=== PATIENT | female | born 1930 | race Caucasian/White ===

== ENCOUNTER → 2016-08-30 | Outpatient (CLI) | payer OTHER ==
[~2016-08-30] MED LIST: AMLO-110 PO; ASPEC325 PO
[2016-08-30 17:36] LABS: BASO % 0.9 %; EOS % 2.6 %; IG% 0.6 %; LYMPH ABS # 1.27 K/uL (1.2-3.4); MEAN CELL VOLUME 69.9 fL (80-100); MEAN CORPUSCULAR HEMOGLOBIN 21.8 pg (25-34); MEAN CORPUSCULAR HGB CONC 31.2 g/dl (32-36); MEAN PLATELET VOLUME 10.2 fL (7.4-10.4); MONO % 6.7 %; NEUT % 78.2 %; PLATELET COUNT 427 K/uL (130-400); RED BLOOD COUNT 4.72 M/uL (4.2-5.4); WHITE BLOOD COUNT 11.52 K/uL (4.8-10.8)
[2016-08-30 17:52] LABS: ALT/SGPT 25 U/L (12-78); BLOOD UREA NITROGEN 24 mg/dl (7-18); BUN/CREATININE RATIO 19.6 (10-20); CARBON DIOXIDE 24 mmol/L (21-32); CHLORIDE 105 mmol/L (98-107); GLUCOSE 173 mg/dl (70-99); POTASSIUM 4.2 mmol/L (3.5-5.1); SODIUM 137 mmol/L (136-145)
[2016-08-30 18:03] LABS: ALB/GLOB RATIO 0.8 (0.9-2); ALKALINE PHOSPHATASE 790 U/L (45-117); AST/SGOT 63 U/L (15-37)
[2016-08-30 18:06] LABS: CALCIUM 9.5 mg/dl (8.5-10.1)
[2016-08-30 18:09] LABS: COMPLETE YES; MICROCYTOSIS PRESENT
== END | disposition home or self-care (01) ==
LOC: C.LABBFT 16:15
PROVIDERS: ATTEND Nurse Practitioner
DX: R53.1 Weakness (principal)

== ENCOUNTER → 2016-08-31 | Outpatient (CLI) | payer OTHER ==
[2016-08-31 12:43] LABS: URINE APPEARANCE CLOUDY (CLEAR); URINE BILIRUBIN NEG (NEG); URINE COLOR YELLOW; URINE NITRITE NEG (NEG); URINE SPECIFIC GRAVITY 1.018 (1.000-1.030); UROBILINOGEN NEG (NEG); ZZUR CULT IF INDIC CLEAN CATCH NO
[2016-08-31 12:57] LABS: MANUAL MICROSCOPIC REQUIRED? NO; REVIEW REQ? NO
== END | disposition home or self-care (01) ==
LOC: C.LABSPEC 12:20
PROVIDERS: ATTEND Nurse Practitioner
DX: R53.1 Weakness (principal)

== ENCOUNTER → 2016-08-31 | Outpatient (CLI) | payer OTHER ==
--- NOTE | 2016-08-31 08:52 | DIAGNOSTIC IMAGING REPORT ---
CHEST 2 VIEWS ROUTINE CLINICAL HISTORY: R63.4 Weight loss COMPARISON STUDY: No previous studies for comparison. FINDINGS: The heart is normal in size. There is no failure. There is no focal pulmonary consolidation. There is a retrocardiac opacity consistent with a hiatal hernia. There is a trace right pleural effusion. There is interstitial thickening, a finding of uncertain chronicity.[ There is a possible right retrohilar mass. CT scanning is recommended in follow-up. IMPRESSION: 1. Mild interstitial thickening, a finding of uncertain benito 2. Trace right pleural effusion 3. No evidence of focal pulmonary consolidation 4. Possible right retrohilar mass. CT scanning is recommended in follow-up. Electronically signed by: Chandu Wolf M.D. 08/31/2016 8:50 AM Dictated Date/Time: 08/31/2016 8:47 AM
== END | disposition home or self-care (01) ==
LOC: C.RAD 08:33
PROVIDERS: ATTEND Nurse Practitioner
DX: R63.4 Abnormal weight loss (principal); J90 Pleural effusion, not elsewhere classified

== ENCOUNTER 2016-09-03 08:57 | Inpatient (IN) | payer OTHER ==
[~2016-09-03] VITALS: Ht 162.6 cm; Wt 47.6 kg
[~2016-09-03 08:57] MED LIST changes: -AMLO-110 PO
[2016-09-03] MEDS ORDERED: SODIUM CHLORIDE 0.9% 1000ML 1,000 ML IV STA (09:39)
[2016-09-03 09:47] LABS: BASO % 0.2 %; BASO ABS # 0.04 K/uL (0-0.2); EOS % 0.1 %; IG% 0.4 %; LYMPH % 5.3 %; LYMPH ABS # 0.92 K/uL (1.2-3.4); MEAN CELL VOLUME 70.5 fL (80-100); MEAN CORPUSCULAR HEMOGLOBIN 21.7 pg (25-34); MEAN CORPUSCULAR HGB CONC 30.8 g/dl (32-36); MEAN PLATELET VOLUME 10.2 fL (7.4-10.4); MONO % 3.1 %; NEUT % 90.9 %; PLATELET COUNT 391 K/uL (130-400); RED BLOOD COUNT 5.25 M/uL (4.2-5.4); WHITE BLOOD COUNT 17.48 K/uL (4.8-10.8)
[2016-09-03 09:56] LABS: ALT/SGPT 25 U/L (12-78); AST/SGOT 60 U/L (15-37); BLOOD UREA NITROGEN 32 mg/dl (7-18); CALCIUM 8.8 mg/dl (8.5-10.1); CARBON DIOXIDE 27 mmol/L (21-32); CHLORIDE 105 mmol/L (98-107); GLUCOSE 161 mg/dl (70-99); POTASSIUM 4.4 mmol/L (3.5-5.1); SODIUM 141 mmol/L (136-145)
[2016-09-03] MEDS ORDERED: OPTIRAY 320 IV PRN (10:00)
[2016-09-03] MEDS ORDERED: ALBUT/IPRATROP 3MG/0.5MG NEB 3 ML VIAL INH ONE (10:00)
--- NOTE | 2016-09-03 10:03 | EMERGENCY ROOM VISIT NOTE ---
History Report prepared by Jazzy: Jann Moelelr Under the Supervision of: Dr. Toby Chavez M.D. First contact with patient: 09:30 Chief Complaint: WEAKNESS Stated Complaint: WEAKNESS Nursing Triage Summary: pt reports she had oral surgery on jun [address] espinoza and dr levy. had 2 implants was told they bruised a nerve and sx could take up to 6 months to resolve. pt reports left lower jaw is numb and has cough when she swallows since surgery. pt reports she only eats cereal. mouth is dry lips stick to teeth and pt has difficulty speaking d/t dry mouth. pt reports she took miralax last night able to move bowels and urinates without difficulty. pt reports feeling weak and not able to eat much and drinking fluids make her cough. History of Present Illness The patient is a 86 year old female who presents to the Emergency Room with complaints of persistent loss of appetite starting about 2 weeks ago. She recently had some dental implants placed. Since then she has been unable to eat as normal. The patient reports some difficulty swallowing. She has numbness and pain in lower jaw. She also complains of severe generalized weakness. The patient denies headache, fevers, chills, chest pain, shortness of breath, abdominal pain, or any other complaints. She denies any breathing treatments at home. She is a former cigarette smoker of 15 years. Source of History: patient Onset: about 2 weeks ago Position: other (global) Quality: other (loss of appetite) Timing: other (persistent) Associated Symptoms: + numbness (in jaw), + weakness, No SOB, No abdominal pain, No chest pain, No fevers, No headache Review of Systems See HPI for pertinent positives & negatives. A total of 10 systems reviewed and were otherwise negative. Past Medical & Surgical Medical Problems: (1) Fatigue, tachycardia, weight loss (2) Hypertension (3) Tachycardia Family History Hypertension Social History Smoking Status: Former Smoker Alcohol Use: none Marital Status: Housing Status: lives with family Occupation Status: retired Current/Historical Medications Scheduled Amlodipine (Norvasc), 5 MG PO DAILY Allergies Coded Allergies: No Known Allergies (Unverified , 03/16/07) Physical Exam Vital Signs Date Time Temp Pulse Resp B/P Pulse Ox O2 Delivery O2 Flow Rate FiO2 09/03/16 12:40 109 19 119/76 94 Room Air 09/03/16 11:32 126 21 144/76 95 Room Air 09/03/16 10:42 103 18 99 Room Air 09/03/16 10:41 117 20 181/106 97 Room Air 09/03/16 10:36 102 181/98 99 107 194/109 111 181/106 09/03/16 10:17 100 09/03/16 09:02 105 18 105/63 94 Room Air Physical Exam GENERAL: Patient is a healthy-appearing well-nourished HEAD: Normocephalic atraumatic EYES: Ocular movements intact pupils equal and react to light OROPHARYNX mucous membranes are moist no exudates present no erythema or edema present NECK: Supple no nuchal rigidity CHEST: Good equal expansion LUNGS: Bilateral wheezing CARDIAC: Normal S1 and S2 ABDOMEN: Soft nontender no guarding BACK: No CVA tenderness EXTREMITIES: No pain upon palpation normal muscle strength in all groups no clubbing cyanosis or edema NEURO: Patient is following commands is answering questions appropriately. Alert and oriented x3 Cranial Nerves 2-12 grossly intact Medical Decision & Procedures ER Provider Diagnostic Interpretation: CT results as stated below per my review and radiologist interpretation: CT ANGIOGRAPHY OF THE CHEST, PULMONARY EMBOLUS PROTOCOL CLINICAL HISTORY: Shortness of breath and cough. COMPARISON STUDY: Chest radiograph August 31, 2016. TECHNIQUE: Following IV administration of 74 mL of Optiray-320, helical axial images of the chest were obtained utilizing the pulmonary embolus protocol. Maximal intensity projections and sagittal and coronal reformats were viewed on an independent 3D workstation. IV contrast was administered without complication. CT DOSE: 793.42 mGy.cm FINDINGS: No pulmonary emboli are identified although this exam is moderately compromised by respiratory motion artifact. The heart is mildly enlarged. There is no evidence of thoracic aortic dissection. There is a moderate sized hiatal hernia. There is possible thickening of the proximal stomach which is suboptimally assessed by CT. A small right pleural effusion is present. There is no pneumothorax. Moderate emphysema is noted. There is an irregular right lower lobe perihilar mass that measures 7 x 3.9 x 3.2 cm. This likely extends into the mediastinum. There are multiple pathologic right hilar lymph nodes. There are enlarged prevascular and precarinal lymph nodes. Innumerable nodules are noted throughout the lungs. There is interlobular septal thickening within the right lung. The lungs are suboptimally assessed due to respiratory motion. Innumerable sclerotic lesions are noted within visualized skeletal structures with mild loss of height of the T5 and T7 vertebral bodies. Visualized portions of the upper abdomen demonstrate suspected hepatic lesions with a right hepatic lobe lesion measuring 3.4 cm. IMPRESSION: 1. No pulmonary emboli identified although exam moderately compromised by respiratory motion. 2.Irregular right lower lobe perihilar mass with extension into the mediastinum, measuring approximately 7 x 3.9 x 3.2 cm. 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 3. Evidence of widespread metastatic disease, including skeletal, hepatic, pulmonary and mercedes metastases. Suspected mild pathologic fractures of T5 and T7. 4. Small right pleural effusion. 5. Moderate emphysema. 6. Moderate sized hiatal hernia. Possible thickening versus underdistention of the herniated portion of the stomach. An underlying mass is considered unlikely but would be difficult to exclude on this exam. Electronically signed by: Jose Chaudhry M.D. 09/03/2016 11:12 AM Dictated Date/Time: 09/03/2016 10:[address] HEAD WITHOUT CONTRAST (CT) CLINICAL HISTORY: Altered mental status, weakness. COMPARISON STUDY: No previous studies for comparison. TECHNIQUE: Axial CT of the brain is performed from the vertex to the skull base. IV contrast was not administered for this examination. CT DOSE: FINDINGS: No intra or extra-axial mass lesions are visualized. There is no CT evidence of acute cortical infarction. There is no evidence of midline shift. There is no acute hemorrhage. No calvarial fractures are visualized. There are patchy white matter hypodensities likely on a small vessel basis. There is no evidence of pathologic ventricular dilatation. There is no evidence of acute sinusitis IMPRESSION: No acute intracranial findings Electronically signed by: Chandu Wolf M.D. 09/03/2016 10:41 AM Dictated Date/Time: 09/03/2016 10:40 AM Laboratory Results 09/03/16 09:20 Red Blood Count 5.25, Mean Corpuscular Volume 70.5, Mean Corpuscular Hemoglobin 21.7, Mean Corpuscular Hemoglobin Concent 30.8, Mean Platelet Volume 10.2, Neutrophils (%) (Auto) 90.9, Lymphocytes (%) (Auto) 5.3, Monocytes (%) (Auto) 3.1, Eosinophils (%) (Auto) 0.1, Basophils (%) (Auto) 0.2, Neutrophils # (Auto) 15.88, Lymphocytes # (Auto) 0.92, Monocytes # (Auto) 0.55, Eosinophils # (Auto) 0.02, Basophils # (Auto) 0.04 09/03/16 09:20 Test 09/03/16 09:20 09/03/16 10:22 White Blood Count 17.48 K/uL (4.8-10.8) Red Blood Count 5.25 M/uL (4.2-5.4) Hemoglobin 11.4 g/dL (12.0-16.0) Hematocrit 37.0 % (37-47) Mean Corpuscular Volume 70.5 fL (80-100) Mean Corpuscular Hemoglobin 21.7 pg (25-34) Mean Corpuscular Hemoglobin Concent 30.8 g/dl (32-36) Platelet Count 391 K/uL (130-400) Mean Platelet Volume 10.2 fL (7.4-10.4) Neutrophils (%) (Auto) 90.9 % Lymphocytes (%) (Auto) 5.3 % Monocytes (%) (Auto) 3.1 % Eosinophils (%) (Auto) 0.1 % Basophils (%) (Auto) 0.2 % Neutrophils # (Auto) 15.88 K/uL (1.4-6.5) Lymphocytes # (Auto) 0.92 K/uL (1.2-3.4) Monocytes # (Auto) 0.55 K/uL (0.11-0.59) Eosinophils # (Auto) 0.02 K/uL (0-0.5) Basophils # (Auto) 0.04 K/uL (0-0.2) RDW Standard Deviation 45.5 fL (36.4-46.3) RDW Coefficient of Variation 18.0 % (11.5-14.5) Immature Granulocyte % (Auto) 0.4 % Immature Granulocyte # (Auto) 0.07 K/uL (0.00-0.02) Microcytosis PRESENT Acanthocytes 1+ Prothrombin Time 10.8 SECONDS (9.0-12.0) Prothromb Time International Ratio 1.0 (0.9-1.1) Est Creatinine Clear Calc Drug Dose 18.7 ml/min Estimated GFR () 33.5 Estimated GFR (Non- 28.9 BUN/Creatinine Ratio 20.0 (10-20) Calcium Level 8.8 mg/dl (8.5-10.1) Total Bilirubin 0.5 mg/dl (0.2-1) Direct Bilirubin 0.1 mg/dl (0-0.2) Aspartate Amino Transf (AST/SGOT) 60 U/L (15-37) Alanine Aminotransferase (ALT/SGPT) 25 U/L (12-78) Alkaline Phosphatase 968 U/L (45-117) Total Creatine Kinase 38 U/L (26-192) Creatine Kinase MB < 0.5 ng/ml (0.5-3.6) Creatine Kinase MB Ratio (0-3.0) Troponin I < 0.015 ng/ml (0-0.045) Total Protein 7.7 gm/dl (6.4-8.2) Albumin 3.1 gm/dl (3.4-5.0) Thyroid Stimulating Hormone (TSH) 2.430 uIu/ml (0.300-4.500) Bedside Hemoglobin 11.2 g/dl (12.0-16.0) Bedside Hematocrit 33 % (37-47) Bedside Sodium 140 mEq/L (135-144) Bedside Potassium 4.3 mEq/L (3.3-5.0) Bedside Chloride 106 mEq/L (101-112) Bedside Total CO2 21 mEq/l (24-31) Anion Gap 18.0 mmol/L (16-25) Bedside Blood Urea Nitrogen 31 mg/dl (7-18) Bedside Creatinine 1.3 mg/dl (0.6-1.3) Bedside Glucose (other) 126 mg/dl (70-99) Bedside Ionized Calcium (Ricardo) 1.01 mmol/l (1.12-1.32) Labs reviewed by ED physician. Medications Administered Medications (Trade) Dose Ordered Sig/Holly Route Start Time Stop Time Status Last Admin Dose Admin Sodium Chloride (Nss 1000ml) 1,000 ml @ 999 mls/hr Q1H1M STAT IV 09/03/16 09:39 09/03/16 10:39 DC 09/03/16 09:39 999 MLS/HR Albuterol/ Ipratropium (Duoneb) 12 ml ONE ONCE INH 09/03/16 10:00 09/03/16 10:01 DC 09/03/16 10:41 12 ML ECG Indication: weakness Rate (beats per minute): 99 Rhythm: normal sinus Findings: no acute ischemic change, no ectopy ED Course 0930: Past medical records reviewed. The patient was evaluated in room C09. A complete history and physical examination was performed. 0939: Sodium Chloride 1000 ml @ 999 mls/hr IV 1000: DuoNeb 12 ml INH 1126: I discussed the patient's case [facility]: Upon reexamination the patient is resting comfortably. I discussed results and treatment plan with the patient and her son. They verbalize agreement and understanding. The patient will be evaluated for further management. Medical Decision Differential diagnosis: Etiologies such as metabolic, infection, hypo/hyperglycemia, electrolyte abnormalities, cardiac sources, intracerebral event, toxicologic, neurologic, as well as others were entertained. This is an 86-year-old female who presents emergency department complaining of a shadow on a chest x-ray that was done as an outpatient. The patient is also complaining of coughing that she attributes to having a dental procedure performed. Due to the nature the patient's complaint she was sent for CAT scan of the chest which was concerning for a tumor that appears to spread to her spine as well as her liver. Based on the nature the patient's complaint I did discuss the case with the hospitalist service who agreed to admit the patient. Patient family were in agreement with the treatment plan. Consults Time Called: 1120 Consulting Physician: Dr. Thibodeaux, from [facility] Returned Call: [phone] I discussed the patient's case with Dr. Thibodeaux, from [facility]. Impression Primary Impression: Lung mass Scribe Attestation The scribe's documentation has been prepared under my direction and personally reviewed by me in its entirety. I confirm that the note above accurately reflects all work, treatment, procedures, and medical decision making performed by me. Departure Information Dispostion Being Evaluated By Hospitalist Referrals Mihir El M.D. (PCP) Patient Instructions My [facility]
[2016-09-03 10:07] LABS: ALKALINE PHOSPHATASE 968 U/L (45-117)
[2016-09-03 10:29] LABS: ACANTHOCYTES 1+; COMPLETE YES; MICROCYTOSIS PRESENT
[2016-09-03 10:35] LABS: ISTAT CREATININE 1.3 mg/dl (0.6-1.3); ISTAT HEMOGLOBIN 11.2 g/dl (12.0-16.0); ISTAT IONIZED CALCIUM 1.01 mmol/l (1.12-1.32)
[2016-09-03 10:42] VITALS: PULSE 103; O2SAT 99
--- NOTE | 2016-09-03 10:43 | DIAGNOSTIC IMAGING REPORT ---
CT HEAD WITHOUT CONTRAST (CT) CLINICAL HISTORY: Altered mental status, weakness. COMPARISON STUDY: No previous studies for comparison. TECHNIQUE: Axial CT of the brain is performed from the vertex to the skull base. IV contrast was not administered for this examination. CT DOSE: FINDINGS: No intra or extra-axial mass lesions are visualized. There is no CT evidence of acute cortical infarction. There is no evidence of midline shift. There is no acute hemorrhage. No calvarial fractures are visualized. There are patchy white matter hypodensities likely on a small vessel basis. There is no evidence of pathologic ventricular dilatation. There is no evidence of acute sinusitis IMPRESSION: No acute intracranial findings Electronically signed by: Chandu Wolf M.D. 09/03/2016 10:41 AM Dictated Date/Time: 09/03/2016 10:40 AM
[2016-09-03] MEDS ORDERED: AMLO-110 PO (10:47)
--- NOTE | 2016-09-03 11:14 | DIAGNOSTIC IMAGING REPORT ---
CT ANGIOGRAPHY OF THE CHEST, PULMONARY EMBOLUS PROTOCOL CLINICAL HISTORY: Shortness of breath and cough. COMPARISON STUDY: Chest radiograph August 31, 2016. TECHNIQUE: Following IV administration of 74 mL of Optiray-320, helical axial images of the chest were obtained utilizing the pulmonary embolus protocol. Maximal intensity projections and sagittal and coronal reformats were viewed on an independent 3D workstation. IV contrast was administered without complication. CT DOSE: 793.42 mGy.cm FINDINGS: No pulmonary emboli are identified although this exam is moderately compromised by respiratory motion artifact. The heart is mildly enlarged. There is no evidence of thoracic aortic dissection. There is a moderate sized hiatal hernia. There is possible thickening of the proximal stomach which is suboptimally assessed by CT. A small right pleural effusion is present. There is no pneumothorax. Moderate emphysema is noted. There is an irregular right lower lobe perihilar mass that measures 7 x 3.9 x 3.2 cm. This likely extends into the mediastinum. There are multiple pathologic right hilar lymph nodes. There are enlarged prevascular and precarinal lymph nodes. Innumerable nodules are noted throughout the lungs. There is interlobular septal thickening within the right lung. The lungs are suboptimally assessed due to respiratory motion. Innumerable sclerotic lesions are noted within visualized skeletal structures with mild loss of height of the T5 and T7 vertebral bodies. Visualized portions of the upper abdomen demonstrate suspected hepatic lesions with a right hepatic lobe lesion measuring 3.4 cm. IMPRESSION: 1. No pulmonary emboli identified although exam moderately compromised by respiratory motion. 2.Irregular right lower lobe perihilar mass with extension into the mediastinum, measuring approximately 7 x 3.9 x 3.2 cm. 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 3. Evidence of widespread metastatic disease, including skeletal, hepatic, pulmonary and mercedes metastases. Suspected mild pathologic fractures of T5 and T7. 4. Small right pleural effusion. 5. Moderate emphysema. 6. Moderate sized hiatal hernia. Possible thickening versus underdistention of the herniated portion of the stomach. An underlying mass is considered unlikely but would be difficult to exclude on this exam. Electronically signed by: Jose Chaudhry M.D. 09/03/2016 11:12 AM Dictated Date/Time: 09/03/2016 10:51 AM
[2016-09-03] MEDS ORDERED: POLYETHYLENE (MIRALAX) 17 GM PACK PO PRN (13:00)
[2016-09-03] MEDS ORDERED: MAGNESIUM HYDROXIDE SUSP 30 ML UDC PO PRN (13:00)
[2016-09-03] MEDS ORDERED: ONDANSETRON INJ 2 MG/ML 2 ML VIAL IV PRN (13:00)
[2016-09-03] MEDS ORDERED: ACETAMINOPHEN 325 MG TAB PO PRN (13:00)
--- NOTE | 2016-09-03 13:21 | History and Physical ---
History & Physical Date & Time of Service: Sep 03, 2016 at 13:02 Chief Complaint: Weakness Primary Care Physician: Mihir El M.D. History of Present Illness Source: patient, family This is an 86-year-old female with past medical history of hypertension, osteoarthritis, 20 pound weight loss since March, dental implants placed in March, presenting to the ER after worsening weakness, fatigue and loss of appetite. The patient is here with her son, Lukas. The patient reports having oral surgery last March, and that local anesthetic was administered and she has been unable to feel her gums or swallow correctly for the last few weeks. She reports that now she feels her voice is worsening. The patient has been unable to take bites of food or sips of water without choking on it. This has significantly worsened in the last few days per son's report. She admits to a weight loss of 20 pounds since March. She reports inability to take in in normal amounts of food or drink like she was prior to the oral surgery. Here in the ER the patient's labs show significant leukocytosis with a left shift, CT of the chest was obtained which shows a right lower lobe perihilar mass suspicious for bronchogenic carcinoma. Its size measures 7 x 3.9 x 3.2 cm , there is also skeletal, hepatic, pulmonary and nodular masses present. There is pathological fracture involving T5 and T7. She has a right pleural effusion , and moderate emphysema. Discussion was held with the patient and her son at bedside regarding possibility of bronchogenic carcinoma and the extensiveness of it. Patient asks if she is able to have oncological care at an outside facility, specifically [facility]. She is agreeable to meeting with our oncologist and thoracic surgeons and for initial workup. Past Medical/Surgical History Medical Problems: (1) Hypertension Status: Chronic Family History Hypertension Social History Smoking Status: Former Smoker Smokeless Tobacco Use: No Alcohol Use: none Drug Use: none Marital Status: Housing status: lives with family (son at bedside) Occupational Status: retired Allergies Coded Allergies: No Known Allergies (Unverified , 03/16/07) Home Medications Scheduled Amlodipine (Norvasc), 5 MG PO DAILY Review of Systems Constitutional: + chills, + fatigue, + weight loss (20 pounds), No fever, No sweats (no night sweats) Eyes: No diplopia, No redness ENT: + problem reported (hoarse voice), + sore throat, + trouble swallowing Respiratory: + cough, + dyspnea on exertion, No hemoptysis, No shortness of breath Cardiovascular: No chest pain, No palpitations Abdomen: + constipation, No diarrhea, No nausea, No pain, No vomiting Musculoskeletal: No calf pain, No joint pain, No swelling Genitourinary - Female: No dysuria Neurologic: + balance problems (uses a walker for ambulation assistance), No numbness/tingling, No paralysis Psychiatric: No anxiety, No depression symptoms Endocrine: + fatigue Integumentary: No itch, No rash Physical Exam Vital Signs Date Time Temp Pulse Resp B/P Pulse Ox O2 Delivery O2 Flow Rate FiO2 09/03/16 12:40 109 19 119/76 94 Room Air 09/03/16 11:32 126 21 144/76 95 Room Air 09/03/16 10:42 103 18 99 Room Air 09/03/16 10:41 117 20 181/106 97 Room Air 09/03/16 10:36 102 181/98 99 107 194/109 111 181/106 09/03/16 10:17 100 09/03/16 09:02 105 18 105/63 94 Room Air General Appearance: WD/WN, no apparent distress, + thin (cachectic) Head: normocephalic, atraumatic Eyes: PERRL, EOMI, + pertinent finding (mucous membranes extremely dry) ENT: pharynx normal, + pertinent finding (mildly hard of hearing) Neck: supple, no JVD Respiratory/Chest: chest non-tender, no respiratory distress, no accessory muscle use, + pertinent finding (diminished breath sounds at the right base, no expiratory or inspiratory wheezing, no rales, rhonchi) Cardiovascular: regular rate, rhythm, no murmur, normal peripheral pulses, + tachycardia Abdomen/GI: normal bowel sounds, non tender, soft, no organomegaly Back: no CVA tenderness Extremities/Musculoskelatal: no calf tenderness, no pedal edema Neurologic/Psych: alert, normal mood/affect, oriented x 3 Skin: normal color, warm/dry Diagnostics Laboratory Results Results Past 24 Hours Test 09/03/16 09:20 09/03/16 10:22 Range/Units White Blood Count 17.48 4.8-10.8 K/uL Red Blood Count 5.25 4.2-5.4 M/uL Hemoglobin 11.4 12.0-16.0 g/dL Hematocrit 37.0 37-47 % Mean Corpuscular Volume 70.5 80-100 fL Mean Corpuscular Hemoglobin 21.7 25-34 pg Mean Corpuscular Hemoglobin Concent 30.8 32-36 g/dl Platelet Count 391 130-400 K/uL Mean Platelet Volume 10.2 7.4-10.4 fL Neutrophils (%) (Auto) 90.9 % Lymphocytes (%) (Auto) 5.3 % Monocytes (%) (Auto) 3.1 % Eosinophils (%) (Auto) 0.1 % Basophils (%) (Auto) 0.2 % Neutrophils # (Auto) 15.88 1.4-6.5 K/uL Lymphocytes # (Auto) 0.92 1.2-3.4 K/uL Monocytes # (Auto) 0.55 0.11-0.59 K/uL Eosinophils # (Auto) 0.02 0-0.5 K/uL Basophils # (Auto) 0.04 0-0.2 K/uL RDW Standard Deviation 45.5 36.4-46.3 fL RDW Coefficient of Variation 18.0 11.5-14.5 % Immature Granulocyte % (Auto) 0.4 % Immature Granulocyte # (Auto) 0.07 0.00-0.02 K/uL Microcytosis PRESENT Acanthocytes 1+ Sodium Level 141 136-145 mmol/L Potassium Level 4.4 3.5-5.1 mmol/L Chloride Level 105 98-107 mmol/L Carbon Dioxide Level 27 21-32 mmol/L Anion Gap 9.0 18.0 16-25 mmol/L Blood Urea Nitrogen 32 7-18 mg/dl Creatinine 1.60 0.60-1.20 mg/dl Est Creatinine Clear Calc Drug Dose 18.7 ml/min Estimated GFR () 33.5 Estimated GFR (Non- 28.9 BUN/Creatinine Ratio 20.0 10-20 Random Glucose 161 70-99 mg/dl Calcium Level 8.8 8.5-10.1 mg/dl Total Bilirubin 0.5 0.2-1 mg/dl Direct Bilirubin 0.1 0-0.2 mg/dl Aspartate Amino Transf (AST/SGOT) 60 15-37 U/L Alanine Aminotransferase (ALT/SGPT) 25 12-78 U/L Alkaline Phosphatase 968 45-117 U/L Total Creatine Kinase 38 26-192 U/L Creatine Kinase MB < 0.5 0.5-3.6 ng/ml Creatine Kinase MB Ratio 0-3.0 Troponin I < 0.015 0-0.045 ng/ml Total Protein 7.7 6.4-8.2 gm/dl Albumin 3.1 3.4-5.0 gm/dl Thyroid Stimulating Hormone (TSH) 2.430 0.300-4.500 uIu/ml Bedside Hemoglobin 11.2 12.0-16.0 g/dl Bedside Hematocrit 33 37-47 % Bedside Sodium 140 135-144 mEq/L Bedside Potassium 4.3 3.3-5.0 mEq/L Bedside Chloride 106 101-112 mEq/L Bedside Total CO2 21 24-31 mEq/l Bedside Blood Urea Nitrogen 31 7-18 mg/dl Bedside Creatinine 1.3 0.6-1.3 mg/dl Bedside Glucose (other) 126 70-99 mg/dl Bedside Ionized Calcium (Ricardo) 1.01 1.12-1.32 mmol/l Diagnostic Radiology CT HEAD WITHOUT CONTRAST (CT) CLINICAL HISTORY: Altered mental status, weakness. COMPARISON STUDY: No previous studies for comparison. TECHNIQUE: Axial CT of the brain is performed from the vertex to the skull base. IV contrast was not administered for this examination. CT DOSE: FINDINGS: No intra or extra-axial mass lesions are visualized. There is no CT evidence of acute cortical infarction. There is no evidence of midline shift. There is no acute hemorrhage. No calvarial fractures are visualized. There are patchy white matter hypodensities likely on a small vessel basis. There is no evidence of pathologic ventricular dilatation. There is no evidence of acute sinusitis IMPRESSION: No acute intracranial findings CT ANGIOGRAPHY OF THE CHEST, PULMONARY EMBOLUS PROTOCOL CLINICAL HISTORY: Shortness of breath and cough. COMPARISON STUDY: Chest radiograph August 31, 2016. TECHNIQUE: Following IV administration of 74 mL of [id number]-[id number], helical axial images of the chest were obtained utilizing the pulmonary embolus protocol. Maximal intensity projections and sagittal and coronal reformats were viewed on an independent 3D workstation. IV contrast was administered without complication. CT DOSE: 793.42 mGy.cm FINDINGS: No pulmonary emboli are identified although this exam is moderately compromised by respiratory motion artifact. The heart is mildly enlarged. There is no evidence of thoracic aortic dissection. There is a moderate sized hiatal hernia. There is possible thickening of the proximal stomach which is suboptimally assessed by CT. A small right pleural effusion is present. There is no pneumothorax. Moderate emphysema is noted. There is an irregular right lower lobe perihilar mass that measures 7 x 3.9 x 3.2 cm. This likely extends into the mediastinum. There are multiple pathologic right hilar lymph nodes. There are enlarged prevascular and precarinal lymph nodes. Innumerable nodules are noted throughout the lungs. There is interlobular septal thickening within the right lung. The lungs are suboptimally assessed due to respiratory motion. Innumerable sclerotic lesions are noted within visualized skeletal structures with mild loss of height of the T5 and T7 vertebral bodies. Visualized portions of the upper abdomen demonstrate suspected hepatic lesions with a right hepatic lobe lesion measuring 3.4 cm. IMPRESSION: 1. No pulmonary emboli identified although exam moderately compromised by respiratory motion. 2.Irregular right lower lobe perihilar mass with extension into the mediastinum, measuring approximately 7 x 3.9 x 3.2 cm. 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 3. Evidence of widespread metastatic disease, including skeletal, hepatic, pulmonary and mercedes metastases. Suspected mild pathologic fractures of T5 and T7. 4. Small right pleural effusion. 5. Moderate emphysema. 6. Moderate sized hiatal hernia. Possible thickening versus underdistention of the herniated portion of the stomach. An underlying mass is considered unlikely but would be difficult to exclude on this exam. Electronically signed by: Jose Chaudhry M.D. 09/03/2016 11:12 AM Dictated Date/Time: 09/03/2016 10:51 AM The status of this report is Signed. EKG Vent. rate 99 BPM DE interval 144 ms QRS duration 58 ms QT/QTc 358/459 ms P-R-T axes [address] wave inversions or signs of ischemia Impression Assessment and Plan This is an 86-year-old female with past medical history of hypertension, osteoarthritis, 20 pound weight loss since March, dental implants placed in March, presenting to the ER after worsening weakness, fatigue and loss of appetite. New found bronchogenic mass - Admit to med/surg - labs show significant leukocytosis with a left shift, CT of the chest was obtained which shows a right lower lobe perihilar mass suspicious for bronchogenic carcinoma. Its size measures 7 x 3.9 x 3.2 cm, there is also skeletal, hepatic, pulmonary and nodular masses present. There is pathological fracture involving T5 and T7. She has a right pleural effusion, and moderate emphysema. There is no PE. - Consult heme/onc and thoracic medicine for biopsy and for management. Appreciate recs - Checking CA-125 - Checking Vit D level - Speech eval/ Video swallow prior to any oral intake. Keep NPO until then. Afterwards will still need aspiration precautions - Retort Engineer consulted for nutritional recs- lost 20 pbs since Nov. - patient has been using Ensure on an outpatient basis, one can daily. - Consider palliative consult if pt determines that she doesn't want invasive testing, she is not in any pain so no need for analgesia. - PT/OT consults Shortness of breath on exertion - Minimal per the patient report, does not wear supplemental O2 at baseline - Sats are adequate at rest in h mid 90s. - CT chest does not describe infectious etiology or appearance. Afebrile, no fever, sweats or chills. Would have a low threshold to starting the patient on antibiotic like zosyn if she shows any of these sx w/ hx of dysphagia. Elevated Alk Phos - Will trend LFTs with am labs - Likely secondary to hepatic metastasis Hoarse Voice - ?if there is laryngeal nerve involvement with cancer HTN Tachycardia - Continue daily amlodipine 5 mg - Can use prn hydralazine as needed for hypertension. DVT ppx: teds, scds, lovenox subq 30 CODE STATUS: FULL CODE Disposition: Patient from home, lives with son, PT OT to see. Attending Admission Note & Attestation: Pt seen/examined, chart reviewed, and care plan d/w JACQUELYN Galeano. I agree w/ the thornton components of her admission documentation 86yo female who presented with weight loss of 20+ pounds, difficulty with her teeth since a dental procedure in 03/2016, recent hoarse voice, and recent development of significant dysphagia. Family reports coughing after each time she eats/drinks. She has had dyspnea on exertion. In the ER today found to have a large RLL lung mass with apparent metastatic disease to the bones, liver, and lymph nodes. Pathological fractures of the t-spine were seen but she denied any pain. She is a former smoker. PMH, PSH, allergies, meds, sochx, famhx, ros - reviewed vitals: tachy, afebrile, BP/RR normal sats acceptable in RA gen - thin appearing voice - hoarse, modestly dysarthric sounding neck - no JVD, no lymph nodes mouth - no thrush or mass; MM very dry heart - tachy lungs - mild end-exp wheeze b/l abd - soft, NT ext - no edema CTA chest with findings as noted above CT head neg for mets markedly abnormal alk phos of nearly 1000 A/P: stage 4 cancer, unknown primary, but lung most apparent given the size of the RLL mass seen on imaging today. markedly elevated alk phos - suspect due to bony mets and liver mets. 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 speech therapy eval appreciated; agree ENT may be needed and/or additional neck imaging. consider MRI brain to exclude stroke or mets not picked up by CT. agree w/ pulmonary & heme/onc consults. Start NS hydration tonight. Ciaran Thibodeaux MD Level of Care Med/Surg Advanced Directives Existing Advance Directive: Yes Existing Living Will: Yes Existing Power of Felt Puller: Yes Existing Health Care Proxy: Yes Resuscitation Status FULL RESUSCITATION VTE Prophylaxis VTE Risk Assessment Done? Y/N: Yes Risk Level: Moderate Given or contraindicated: Enoxaparin (Lovenox)SQ, T.E.D. Stockings, SCD's
[2016-09-03 13:45] VITALS: BP 118/72; PULSE 123; TEMP 36.4; O2SAT 91; BMI 17.8
[2016-09-03 14:47] LABS: PROTHROMBIN TIME (PATIENT) 10.8 SECONDS (9.0-12.0)
[2016-09-03] MEDS ORDERED: PNEUMOCOCCAL ADMINISTRATION CHARGE ONE (15:45)
[2016-09-03] MEDS ORDERED: PNEUMOCOCCAL POLYSACCHARIDES 25 MCG/0.5 ML VIAL/SYR IM. ONE (15:45)
[2016-09-03] MEDS: SODIUM CHLORIDE 0.9% 1000ML 1,000 ML IV SCH (18:06)
[2016-09-03 19:12] VITALS: BP 157/73; PULSE 108; TEMP 36.6; O2SAT 94
--- NOTE | 2016-09-03 19:19 | Pulmonary Consultation ---
History General Date of Service: Sep 03, 2016. Stated Complaint: Fatigue, Tachycardia, Weight Loss CC: Lung Mass: HPI The patient is a 86 year old female who presents to [facility] with complaints of Fatigue, Tachycardia, Weight Loss. The patient's primary care provider is Mihir El M.D.. CC: Lung Mass: 86-year-old female with beginning past medical history. Admitted with failure to thrive: 20 pound weight loss since March presumed secondary to recent dental implants placed in March and associated complications. In the ED she noted progressive weakness, fatigue and loss of appetite along with a change in her voice and possible episodes of aspiration. During her work-up the patient was noted to have a leukocytosis with a left shift, ANJU and a lung mass. At the time of the interview the patient was in no respiratory failure only noted intermittent thick white mucus production. She denied: pleurisy, classic cardiac CP, fever, chills, and hemoptysis or night sweets. CT of the chest: RLL perihilar mass 7 x 3.9 x 3.2 cm Possible metastatic disease: skeletal, hepatic pathological fracture involving T5 and T7 Right sided pleural thickening Emphysematous changes Historian: patient, family, EMS Review of Systems Constitutional: reports: as stated in HPI Eyes: reports: no symptoms ENT: reports: as stated in HPI Cardiovascular: reports: no symptoms Respiratory: reports: as stated in HPI Gastrointestinal: reports: no symptoms Genitourinary - Female: reports: no symptoms Musculoskeletal: reports: joint pain, myalgias Integumentary: reports: no symptoms Neurologic: reports: as stated in HPI Psychiatric: reports: no symptoms Endocrine: no symptoms Hematologic / Lymphatic: no symptoms Allergic / Immunologic: no symptoms Past Medical History Past Medical History: 1. Acute sinusitis 2. Acute upper respiratory infection 3. Avila Of The Fingers 4. Cerumen impaction 5. Hypertension 6. Immunization due 7. Joint pain, hip 8. Lower back pain 9. bronchitis 10. HTN 11. OA Past Surgical History: no surgical history Family History Hypertension Social History Former smoker ( 20ppd hx // quite 30 ago) Marital History - Lives with her son Lukas Duggan Tobacco Use In Past Year?: No Smoking Status: Former Smoker Marital status: Housing status: lives with family (son at bedside) Occupational Status: retired Allergies Coded Allergies: No Known Allergies (Unverified , 03/16/07) Current Medications Reported Home Medications Medications Dose Route/Sig Max Daily Dose Days Date Category Norvasc (Amlodipine Besylate) 5 Mg Tab 5 Mg PO DAILY 09/03/16 Reported Physical Physical Exam Vital Signs: Date Time Temp Pulse Resp B/P Pulse Ox O2 Delivery O2 Flow Rate FiO2 09/03/16 13:45 36.4 123 20 118/72 91 Room Air 09/03/16 13:27 124 22 108/72 91 09/03/16 12:40 109 19 119/76 94 Room Air 09/03/16 11:32 126 21 144/76 95 Room Air 09/03/16 10:42 103 18 99 Room Air 09/03/16 10:41 117 20 181/106 97 Room Air 09/03/16 10:36 102 181/98 99 107 194/109 111 181/106 09/03/16 10:17 100 09/03/16 09:02 105 18 105/63 94 Room Air General Appearance: cachetic Head: NORMOCEPHALIC, ATRAUMATIC Eyes: PERRLA, NO DISCHARGE, EOMI, SCLERAE NORMAL ENT: NORMAL EAR EXAM, NORMAL NASAL EXAM, other (mild eythema of the posterior mandibul ) Neck: NORMAL RANGE OF MOTION, NO TENDERNESS, TRACHEA MIDLINE, NO STRIDOR Respiratory: BREATH SOUNDS NORMAL, CLEAR TO AUSCULTATION, CLEAR TO PERCUSSION Cardiovasular: REGULAR RATE/RHYTHM, NORMAL S1S2, NO M/G/R, NO MURMUR, NO GALLOP Abdomen: NON TENDER, NORMAL BOWEL SOUNDS, NO REBOUND, NO MASSES, NO GUARDING, NO ORGANOMEGALY Genitourinary - Female: EXTERNAL GENITALIA NORMAL Back: NORMAL INSPECTION, NO MIDLINE TENDERNESS, NO CVA TENDERNESS, NO PARAVERTEBRAL TTP Upper Extremities: NO EDEMA, NO DEFORMITY, NORMAL ROM Lower Extremities: NO EDEMA, NO DEFORMITY, NORMAL ROM Pulses: carotid (R) (2+), carotid (L) (2+), posterior tibial (R), posterior tibial (L) (2+) Neuro: ALERT, ORIENTED x 3, NORMAL MOTOR EXAM, NORMAL SENSATION, NORMAL CEREBELLAR EXAM Reflexes: biceps (R) (2+), bicpes (L) (2+) Babinski Testing: right (downgoing), left (downgoing) Psychiatric: NORMAL AFFECT, NO SUICIDAL IDEATION Diagnostics Labs Results Past 24 Hours Test 09/03/16 09:20 09/03/16 10:22 09/03/16 14:05 09/03/16 16:11 Range/Units White Blood Count 17.48 4.8-10.8 K/uL Red Blood Count 5.25 4.2-5.4 M/uL Hemoglobin 11.4 12.0-16.0 g/dL Hematocrit 37.0 37-47 % Mean Corpuscular Volume 70.5 80-100 fL Mean Corpuscular Hemoglobin 21.7 25-34 pg Mean Corpuscular Hemoglobin Concent 30.8 32-36 g/dl Platelet Count 391 130-400 K/uL Mean Platelet Volume 10.2 7.4-10.4 fL Neutrophils (%) (Auto) 90.9 % Lymphocytes (%) (Auto) 5.3 % Monocytes (%) (Auto) 3.1 % Eosinophils (%) (Auto) 0.1 % Basophils (%) (Auto) 0.2 % Neutrophils # (Auto) 15.88 1.4-6.5 K/uL Lymphocytes # (Auto) 0.92 1.2-3.4 K/uL Monocytes # (Auto) 0.55 0.11-0.59 K/uL Eosinophils # (Auto) 0.02 0-0.5 K/uL Basophils # (Auto) 0.04 0-0.2 K/uL RDW Standard Deviation 45.5 36.4-46.3 fL RDW Coefficient of Variation 18.0 11.5-14.5 % Immature Granulocyte % (Auto) 0.4 % Immature Granulocyte # (Auto) 0.07 0.00-0.02 K/uL Microcytosis PRESENT Acanthocytes 1+ Prothrombin Time 10.8 9.0-12.0 SECONDS Prothromb Time International Ratio 1.0 0.9-1.1 Sodium Level 141 136-145 mmol/L Potassium Level 4.4 3.5-5.1 mmol/L Chloride Level 105 98-107 mmol/L Carbon Dioxide Level 27 21-32 mmol/L Anion Gap 9.0 18.0 16-25 mmol/L Blood Urea Nitrogen 32 7-18 mg/dl Creatinine 1.60 0.60-1.20 mg/dl Est Creatinine Clear Calc Drug Dose 18.7 ml/min Estimated GFR () 33.5 Estimated GFR (Non- 28.9 BUN/Creatinine Ratio 20.0 10-20 Random Glucose 161 70-99 mg/dl Calcium Level 8.8 8.5-10.1 mg/dl Total Bilirubin 0.5 0.2-1 mg/dl Direct Bilirubin 0.1 0-0.2 mg/dl Aspartate Amino Transf (AST/SGOT) 60 15-37 U/L Alanine Aminotransferase (ALT/SGPT) 25 12-78 U/L Alkaline Phosphatase 968 45-117 U/L Total Creatine Kinase 38 26-192 U/L Creatine Kinase MB < 0.5 0.5-3.6 ng/ml Creatine Kinase MB Ratio 0-3.0 Troponin I < 0.015 0-0.045 ng/ml Total Protein 7.7 6.4-8.2 gm/dl Albumin 3.1 3.4-5.0 gm/dl Thyroid Stimulating Hormone (TSH) 2.430 0.300-4.500 uIu/ml Bedside Hemoglobin 11.2 12.0-16.0 g/dl Bedside Hematocrit 33 37-47 % Bedside Sodium 140 135-144 mEq/L Bedside Potassium 4.3 3.3-5.0 mEq/L Bedside Chloride 106 101-112 mEq/L Bedside Total CO2 21 24-31 mEq/l Bedside Blood Urea Nitrogen 31 7-18 mg/dl Bedside Creatinine 1.3 0.6-1.3 mg/dl Bedside Glucose (other) 126 70-99 mg/dl Bedside Ionized Calcium (Ricardo) 1.01 1.12-1.32 mmol/l Bedside Glucose 133 70-90 mg/dl Diagnostic Radiology CT of the chest: RLL perihilar mass 7 x 3.9 x 3.2 cm Possible metastatic disease: skeletal, hepatic pathological fracture involving T5 and T7 Right sided pleural thickening Emphysematous changes EKG Interpretation: NORMAL EKG Impression Assessment and Plan 86 y/o female with Lung Mass: 1) Lung Mass: Over all this is a patient will low probability for primary lung ca but the size and location suggest primary lung ca to be the most likely diagnosis. I have discussed this with the patient, Lukas and Brijesh her son's and her daughter in law. We have all agreed that moving forward with bronchoscopy for possible diagnosis is the proper course of action. The patient will be set up for bronchoscopy for tomorrow am.
[2016-09-03] MEDS ORDERED: DEXTROSE 5% 1000ML 1,000 ML IV SCH (19:30)
[2016-09-03] MEDS: HEPARIN SOD 5000 UNIT/0.5 ML CARP SQ SCH (20:58)
[2016-09-03] MEDS ORDERED: ENOXAPARIN 30 MG/0.3 ML SYR SQ SCH (21:00)
[2016-09-03] MEDS ORDERED: ZOLPIDEM TARTRATE 5 MG TAB ONE (21:41)
[2016-09-03 22:53] VITALS: BP 142/76; PULSE 70; TEMP 36.6; O2SAT 96
[2016-09-04] VITALS (21 sets, daily range): BP systolic 119–195; BP diastolic 76–125; PULSE 99–119; TEMP 36.3–36.7; O2SAT 88–99
[2016-09-04] MEDS: SODIUM CHLORIDE 0.9% 1000ML 1,000 ML IV SCH ×3 (03:10→22:35)
[2016-09-04 05:46] LABS: URINE APPEARANCE CLEAR (CLEAR); URINE BILIRUBIN NEG (NEG); URINE COLOR YELLOW; URINE NITRITE NEG (NEG); URINE PH 5.5 (4.5-7.5); URINE SPECIFIC GRAVITY 1.034 (1.000-1.030); UROBILINOGEN NEG (NEG)
[2016-09-04 05:57] LABS: MANUAL MICROSCOPIC REQUIRED? NO; REVIEW REQ? NO
[2016-09-04 06:26] LABS: BASO % 0.6 %; BASO ABS # 0.09 K/uL (0-0.2); IG% 0.6 %; LYMPH % 11.5 %; MEAN CELL VOLUME 69.9 fL (80-100); MEAN CORPUSCULAR HEMOGLOBIN 21.4 pg (25-34); MEAN CORPUSCULAR HGB CONC 30.6 g/dl (32-36); MEAN PLATELET VOLUME 10.2 fL (7.4-10.4); MONO % 4.7 %; NEUT % 78.6 %; PLATELET COUNT 344 K/uL (130-400); RED BLOOD COUNT 4.58 M/uL (4.2-5.4)
[2016-09-04 06:37] LABS: BUN/CREATININE RATIO 21.8 (10-20); CALCIUM 8.5 mg/dl (8.5-10.1); CREATININE 1.2 mg/dl (0.60-1.20); POTASSIUM 3.6 mmol/L (3.5-5.1)
[2016-09-04 06:48] LABS: ANISOCYTOSIS PRESENT; COMPLETE YES; MICROCYTOSIS PRESENT
[2016-09-04] MEDS: HEPARIN SOD 5000 UNIT/0.5 ML CARP SQ SCH ×2 (07:01→20:37)
--- NOTE | 2016-09-04 09:18 | History & Physical Bridge Note ---
H&P Re-Evaluation Bridge Note: I have examined the patient, reviewed the History & Physical and in the interval since the performance of the History & Physical I have noted the following changes of clinical significance: No changes noted
--- NOTE | 2016-09-04 09:19 | Procedure Note ---
Pre-Mod Sedation Assessment General Date of Moderate Sedation: Sep 04, 2016. Vital Signs: Vital Signs Past 12 Hours Date Time Temp Pulse Resp B/P Pulse Ox O2 Delivery O2 Flow Rate FiO2 09/04/16 09:07 101 18 119/76 92 Mask 09/04/16 08:48 36.7 101 18 167/92 92 Room Air 09/04/16 07:24 36.7 101 18 167/92 92 Room Air 09/04/16 00:00 Room Air 09/03/16 22:53 36.6 70 18 142/76 96 Room Air 09/03/16 21:59 Room Air Review Cardiovascular: regular rate, rhythm, no edema, no gallop, no JVD, no murmur, normal peripheral pulses Abdomen: normal bowel sounds, non tender, soft, no organomegaly, no pulsatile mass, normal rectal exam, occult blood negative Lungs: chest non-tender, lungs clear, normal breath sounds, no respiratory distress, no accessory muscle use Airway Class: II Pre-Sedation Airway Assessment Oral Cavity: Capped Teeth, Dental Abnormalities Able to Visualize Vocal Cords: No Short Thick Neck: No Hx of Sleep Apnea: No Smoking Status: Former Smoker Mallampati Classification: Class IV ASA Classification: Class II Procedure Planning Contraindications-for Mod Sed: None Yes Notes The planned sedation has been discussed with the patient and consent obtained. I have identified the patient, determined the appropriateness of sedation and have assessed the patient immediately prior to the procedure. All medicine(s) and interventions are by my order.
--- NOTE | 2016-09-04 09:49 | Clinical Documentation Query ---
GUERRERO Mejia : CLINICAL DOCUMENTATION QUERY Patient is an 86 year old female admitted for evaluation and treatment of weakness, fatigue, and loss of appetite resulting in a 20 pound weight loss since March. This represents an 18% reduction from initial body weight over this interval. She is described in notes as thin and cachectic In your clinical opinion is this patient being managed for: ( x) possible Severe protein-calorie malnutrition ( ) Other explanation of clinical findings (Please Explain) ( ) Unable to determine (Please Define) ( ) Need to Discuss ( ) Not Agree The medical record reflects the following clinical findings, treatment, and risk factors. 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 Malnutrition in Chronic Illness Moderate or Severe Malnutrition defined by 2 of the following 6 criteria: CHARACTERISTICS MODERATE MALNUTRITION SEVERE MALNUTRITION ENERGY INTAKE <75% of estimated energyrequirement for > 1month <75% of estimated energyrequirement for > 1 month WEIGHT LOSS 5%/1 month7.5%/3 [id number]%/[id number]%/1year >5%/1 month>7.5%/3 months>10%/6months>20%/1year BODY FAT*loss of SQ fat from the orbits, triceps, or fat overlying the ribs MILD SEVERE MUSCLE MASS*muscle wasting at the temples, clavicles, shoulders, interosseous spaces, scapula, thigh, calf MILD SEVERE FLUID ACCUMULATION*localized or generalized edema of the extremities, vulva, scrotum weight loss may be masked by edema 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 Terms such as "probable", "suspected", "likely", "questionable", "possible", or "still to be ruled out" are acceptable. IF IN AGREEMENT, YOU MUST DOCUMENT ABOVE DIAGNOSTIC STATEMENT IN DAILY PROGRESS NOTES AND DISCHARGE SUMMARY. This document is not part of the patient's record. Thank You, Bharath Huffman, BRUNO [phone]
[2016-09-04] MEDS ORDERED: HydrALAZINE HCL 20 MG/ML VIAL IV. PRN (10:00)
--- NOTE | 2016-09-04 10:05 | Bronchoscopy Procedure Note ---
Bronchoscopy Procedure Note Procedure: Bronchoscopy, conscious sedation, Bronchial washing RLL Consent: Obtained through the patient placed into the chart Preprocedural diagnosis: lung mass Postprocedural diagnosis: lug mass Start time: 925 End time: 947 Total time: Analgesia: 2% liquid lidocaine: Via nebulizer 4% gel lidocaine: Via right naris 2% liquid lidocaine: Via bronchoscopy Sedation: Versed IV: 3 mg Fentanyl IV: 75 g Procedure: The [employer] video bronchoscope was used for this procedure initally passed through the right naris then the left naris then the oral pharynx Right naris: notable tight with erythema and small ulceration Left Naris: Anatomically WNL Posterior naris/posterior oropharynx: notable redundant tissue with dry mucus membranes Glottis: Anatomically within normal limits Vocal cords: unable to perform full functional exam but visually anatomically WNL Subglottis/trachea: Anatomically within normal limits Lynn: splayed and blood tinged Right bronchial tree: Right mainstem bronchus: Anatomically within normal limits but blood tinged Right upper lobe: Anatomically within normal limits Bronchus intermedius: diffuse mucosal changes Right middle lobe: Anatomically within normal limits Right lower lobe: diffuse mucosal changes Findings: significant mucosal changes in the RLL and BI with easy friability Left bronchial tree: Left mainstem bronchus: Anatomically within normal limits Left upper lobe: Anatomically within normal limits Lingula: Anatomically within normal limits Left lower lobe: Anatomically within normal limits Findings: No significant findings noted Bronchial Washing: RLL Complications: hypoxemia secondary to redundant and collapsing upper airway and hypertension after full sedation required hydralazine 10mg IV Follow-up: monitor as an inpatient and will require intubation for definitive diagnosis
--- NOTE | 2016-09-04 10:06 | Procedure Note ---
Post-Moderate Sedation Plan General Date of Moderate Sedation Sep 04, 2016. Vital Signs: Vital Signs Past 12 Hours Date Time Temp Pulse Resp B/P Pulse Ox O2 Delivery O2 Flow Rate FiO2 09/04/16 09:07 101 18 119/76 92 Mask 09/04/16 08:48 36.7 101 18 167/92 92 Room Air 09/04/16 07:24 36.7 101 18 167/92 92 Room Air 09/04/16 00:00 Room Air 09/03/16 22:53 36.6 70 18 142/76 96 Room Air Review - Discharge Plan Post Moderate Sedation Plan: On clinical assessment, the patient appears to have tolerated the conscious sedation without complications. Patient is recovering with upper airway induced hypoventilation and hypertension requiring hydralazine return to inpatient bed
[2016-09-04] MEDS ORDERED: HydrALAZINE HCL 20 MG/ML VIAL ONE (10:19)
[2016-09-04] MEDS ORDERED: NURSING VERBAL MED ORDER ONE ×2 (10:30→17:00)
[2016-09-04] MEDS ORDERED: MIDAZOLAM HCL 5 MG/ML 1 ML VIAL IV ONE (10:45)
[2016-09-04] MEDS ORDERED: FENTANYL CITRATE INJ 50 MCG/1 ML 2 ML VIAL IV ONE (10:45)
--- NOTE | 2016-09-04 11:52 | Hospitalist Progress Note ---
Hospitalist Progress Note Date of Service Sep 04, 2016. Subjective Pt evaluation today including: conversation w/ patient, conversation w/ family , physical exam, chart review, lab review, review of studies Pain: None PO Intake: NPO Voiding: no voiding problems The patient was seen and examined this morning. Pt reports doing well today, she just got back up to the floor after bronchoscopy. Dr. Dotson was unable to retrieve a sample, but bronchial washings have been sent for pathology and the family is aware. The patient denies any acute complaints, slept well overnight an is comfortable. She reports her mouth is very dry but has been NPO for risk of aspiration. Constitutional: No chills, No fever, No sweats Eyes: No diplopia, No redness ENT: + dental problems, + trouble swallowing Respiratory: + cough, + dyspnea on exertion, No shortness of breath, No wheezing Cardiovascular: No chest pain, No palpitations Abdomen: No constipation, No diarrhea, No nausea, No pain, No vomiting Musculoskeletal: No joint pain, No muscle pain, No swelling Neurologic: + weakness, No balance problems, No numbness/tingling Endo: No fatigue Skin: No itch, No rash Objective Vital Signs Date Time Temp Pulse Resp B/P Pulse Ox O2 Delivery O2 Flow Rate FiO2 09/04/16 10:46 102 147/80 96 Mask 4.0 09/04/16 10:30 108 18 148/86 97 Mask 4.0 09/04/16 10:20 110 18 170/90 97 Mask 6.0 09/04/16 10:10 114 18 175/97 94 Mask 10.0 09/04/16 10:00 111 18 184/107 94 Mask 15.0 09/04/16 09:50 112 18 195/125 94 Mask 15.0 09/04/16 09:45 110 18 160/98 94 Mask 15.0 09/04/16 09:40 112 18 160/98 93 Mask 15.0 09/04/16 09:35 117 18 184/97 88 Mask 15.0 09/04/16 09:30 100 18 187/110 99 Mask 15.0 09/04/16 09:25 101 18 175/104 91 Mask 6.0 09/04/16 09:20 101 18 175/104 99 Mask 6.0 09/04/16 09:15 101 18 176/105 99 Mask 6.0 09/04/16 09:10 99 17 178/110 99 Mask 09/04/16 09:07 101 18 119/76 92 Mask 09/04/16 08:48 36.7 101 18 167/92 92 Room Air 09/04/16 07:24 36.7 101 18 167/92 92 Room Air 09/04/16 00:00 Room Air 09/03/16 22:53 36.6 70 18 142/76 96 Room Air 09/03/16 21:59 Room Air 09/03/16 20:00 Room Air 09/03/16 19:12 36.6 108 16 157/73 94 Room Air 09/03/16 13:45 36.4 123 20 118/72 91 Room Air 09/03/16 13:27 124 22 108/72 91 09/03/16 12:40 109 19 119/76 94 Room Air Physical Exam General Appearance: WD/WN, no apparent distress, + thin (cachectic) Eyes: PERRL, EOMI ENT: hearing grossly normal, pharynx normal Neck: supple, no JVD Respiratory/Chest: chest non-tender, no respiratory distress, no accessory muscle use, + pertinent finding (On nonrebreather, + cough, nonproductive, + expiratory wheeze throughout, no rhonchi or rhales. ) Cardiovascular: regular rate, rhythm, no JVD, no murmur Abdomen: normal bowel sounds, non tender, soft Extremities: non-tender, no pedal edema, no calf tenderness Neurologic/Psychiatric: no motor/sensory deficits, alert, oriented x 3 Skin: normal color, warm/dry Laboratory Results Last 24 Hours Test 09/03/16 14:05 09/03/16 16:11 09/03/16 20:28 09/04/16 05:20 Bedside Glucose 133 mg/dl 128 mg/dl White Blood Count 13.90 K/uL Red Blood Count 4.58 M/uL Hemoglobin 9.8 g/dL Hematocrit 32.0 % Mean Corpuscular Volume 69.9 fL Mean Corpuscular Hemoglobin 21.4 pg Mean Corpuscular Hemoglobin Concent 30.6 g/dl Platelet Count 344 K/uL Mean Platelet Volume 10.2 fL Neutrophils (%) (Auto) 78.6 % Lymphocytes (%) (Auto) 11.5 % Monocytes (%) (Auto) 4.7 % Eosinophils (%) (Auto) 4.0 % Basophils (%) (Auto) 0.6 % Neutrophils # (Auto) 10.91 K/uL Lymphocytes # (Auto) 1.60 K/uL Monocytes # (Auto) 0.65 K/uL Eosinophils # (Auto) 0.56 K/uL Basophils # (Auto) 0.09 K/uL RDW Standard Deviation 45.9 fL RDW Coefficient of Variation 18.1 % Immature Granulocyte % (Auto) 0.6 % Immature Granulocyte # (Auto) 0.09 K/uL Anisocytosis PRESENT Microcytosis PRESENT Urine Color YELLOW Urine Appearance CLEAR Urine pH 5.5 Urine Specific [place] 1.034 Urine Protein NEG Urine Glucose (UA) NEG Urine Ketones NEG Urine Occult Blood NEG Urine Nitrite NEG Urine Bilirubin NEG Urine Urobilinogen NEG Urine Leukocyte Esterase NEG Sodium Level 141 mmol/L Potassium Level 3.6 mmol/L Chloride Level 109 mmol/L Carbon Dioxide Level 25 mmol/L Anion Gap 7.0 mmol/L Blood Urea Nitrogen 26 mg/dl Creatinine 1.20 mg/dl Est Creatinine Clear Calc Drug Dose 25.0 ml/min Estimated GFR () 47.4 Estimated GFR (Non- 40.9 BUN/Creatinine Ratio 21.8 Random Glucose 102 mg/dl Calcium Level 8.5 mg/dl Total Bilirubin 0.4 mg/dl Direct Bilirubin 0.1 mg/dl Aspartate Amino Transf (AST/SGOT) 47 U/L Alanine Aminotransferase (ALT/SGPT) 20 U/L Alkaline Phosphatase 747 U/L Total Protein 6.5 gm/dl Albumin 2.7 gm/dl Test 09/04/16 07:30 09/04/16 11:30 Bedside Glucose 98 mg/dl 113 mg/dl Assessment and Plan This is an 86-year-old female with past medical history of hypertension, osteoarthritis, 20 pound weight loss since March, dental implants placed in March, presenting to the ER after worsening weakness, fatigue and loss of appetite. New found bronchogenic mass - labs show significant leukocytosis with a left shift, CT of the chest was obtained which shows a right lower lobe perihilar mass suspicious for bronchogenic carcinoma. Its size measures 7 x 3.9 x 3.2 cm, there is also skeletal, hepatic, pulmonary and nodular masses present. There is pathological fracture involving T5 and T7. She has a right pleural effusion, and moderate emphysema. There is no PE. - Consulted heme/onc - to see today, appreciate recs - Pt is s/p bronchoscopy today, bronchial washings sent for pathology, appreciate thoracic medicine for biopsy and for management - Checking CA-125 and Vit D level - Speech has requested ENT involvement. Have consulted them and have asked to see today if possible. 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 - patient has been using Ensure on an outpatient basis, one can daily. - Consider palliative consult if pt determines that she doesn't want invasive testing, she is not in any pain so no need for analgesia. - PT/OT consulted - Discussion was held with family and detailed discussion regarding plan, need for pathology reports, and possibility of hospice and palliative down the road. This discussion needs definitive plans from ENT and heme/onc an path reports and they are all in understanding of this. Shortness of breath on exertion - Minimal per the patient report, does not wear supplemental O2 at baseline - Sats are adequate at rest in the mid 90s. - CT chest does not describe infectious etiology or appearance. Afebrile, no fever, sweats or chills. Would have a low threshold to starting the patient on antibiotic like zosyn if she shows any of these sx w/ hx of dysphagia. Elevated Alk Phos - Will trend LFTs with am labs - Likely secondary to hepatic metastasis Hoarse Voice - ?if there is laryngeal nerve involvement with cancer HTN Tachycardia - Continue daily amlodipine 5 mg - Can use prn hydralazine as needed for hypertension. DVT ppx: teds, scds, lovenox subq 30 CODE STATUS: FULL CODE Disposition: Patient from home, lives with son, ROSETTE to assist with discharge planning.
[2016-09-04] MEDS: MULTIVITAMIN TAB PO SCH ×2 (12:58→15:23)
[2016-09-04] MEDS: AMLODIPINE BESYLATE 5 MG TAB PO SCH ×2 (15:19→15:23)
--- NOTE | 2016-09-04 16:06 | Oncology Consultation ---
Oncology/Heme Consultation Date of Consultation: Sep 04, 2016. Attending Physician: Romaine Frias MD, PhD Reason for Consultation: New lung mass with evidence of metastatic disease History of Present Illness Ms. Rapp is an otherwise healthy 86 year old woman who has experienced a roughly 40 lb weight loss over the last few months. She reports dysphagia and regurgitation, which she and her family attributed to some dental work she had recently. She also developed progressive hoarseness over that time. She presented with these issues and dehydration and failure to thrive. Scans reveal a very large, invasive mass in her RLL that extends into her mediastinum. There is also radiographic evidence of possible osseous and hepatic metastatic disease. Prior to her recent decline, she was fairly active and independent. Now , however, she is less so due to fatigue. She denies headaches, nausea, or vision changes. Past Medical/Surgical History Medical Problems: (1) Lung mass Status: Acute Family History Hypertension Social History Smoking Status: Former Smoker Smokeless Tobacco Use: No Alcohol Use: none Drug Use: none Marital Status: Housing Status: lives with family Occupation Status: retired Allergies Coded Allergies: No Known Allergies (Unverified , 03/16/07) Home Medications Scheduled Amlodipine (Norvasc), 5 MG PO DAILY Current Inpatient Medications Current Inpatient Medications Medications (Trade) Dose Ordered Sig/Holly Route Start Time Stop Time Status Last Admin Dose Admin Ioversol (Optiray 320) 125 ml UD PRN IV 09/03/16 10:00 09/07/16 09:59 Acetaminophen (Tylenol Tab) 650 mg Q4H PRN PO 09/03/16 13:00 10/03/16 12:59 Magnesium Hydroxide (Milk Of Magnesia Susp) 30 ml Q6H PRN PO 09/03/16 13:00 10/03/16 12:59 Polyethylene (Miralax Powder Packet) 17 gm DAILY PRN PO 09/03/16 13:00 10/03/16 12:59 Ondansetron HCl (Zofran Inj) 4 mg Q6H PRN IV 09/03/16 13:00 10/03/16 12:59 Amlodipine Besylate (Norvasc Tab) 5 mg DAILY PO 09/04/16 08:00 10/04/16 08:59 Multivitamins (Multivitamin Tab) 1 tab QAM PO 09/04/16 08:00 10/04/16 08:59 Hydralazine HCl (HydrALAZINE INJ) 10 mg Q4 PRN IV. 09/03/16 14:00 10/03/16 13:59 Heparin Sodium (Porcine) 5000 unit 5,000 unit Q12 SQ 09/03/16 21:00 10/03/16 20:59 09/03/16 20:58 5,000 UNIT Sodium Chloride 1,000 ml @ 100 mls/hr Q10H IV 09/03/16 16:15 10/03/16 16:14 09/04/16 15:23 100 MLS/HR Dextrose (D5W 1000ml) 1,000 ml @ 50 mls/hr Q20H IV 09/03/16 19:30 10/03/16 19:29 09/03/16 20:53 50 MLS/HR Zolpidem Tartrate (Ambien Tab) 2.5 mg HS ONCE PO 09/04/16 21:00 09/04/16 21:01 Hydralazine HCl (HydrALAZINE INJ) 20 mg Q8 PRN IV. 09/04/16 08:15 10/04/16 08:14 Review of Systems Constitutional: + fatigue, + weakness, + weight loss, No fever ENT: + problem reported (hoarseness), + trouble swallowing Respiratory: No hemoptysis, No shortness of breath Cardiovascular: No chest pain Abdomen: No nausea, No pain, No vomiting Musculoskeletal: No joint pain, No muscle pain Neurologic: No numbness/tingling, No weakness Hematologic / Lymphatic: No abnormal bleeding/bruising Integumentary: No rash Physical Exam Date Time Temp Pulse Resp B/P Pulse Ox O2 Delivery O2 Flow Rate FiO2 09/04/16 14:45 36.3 119 20 160/92 94 Nasal Cannula 5.0 09/04/16 13:34 114 18 160/79 95 Nasal Cannula 4.0 09/04/16 10:46 102 147/80 96 Mask 4.0 09/04/16 10:30 108 18 148/86 97 Mask 4.0 09/04/16 10:20 110 18 170/90 97 Mask 6.0 09/04/16 10:10 114 18 175/97 94 Mask 10.0 09/04/16 10:00 111 18 184/107 94 Mask 15.0 09/04/16 09:50 112 18 195/125 94 Mask 15.0 09/04/16 09:45 110 18 160/98 94 Mask 15.0 09/04/16 09:40 112 18 160/98 93 Mask 15.0 09/04/16 09:35 117 18 184/97 88 Mask 15.0 09/04/16 09:30 100 18 187/110 99 Mask 15.0 09/04/16 09:25 101 18 175/104 91 Mask 6.0 09/04/16 09:20 101 18 175/104 99 Mask 6.0 09/04/16 09:15 101 18 176/105 99 Mask 6.0 09/04/16 09:10 99 17 178/110 99 Mask 09/04/16 09:07 101 18 119/76 92 Mask 09/04/16 08:48 36.7 101 18 167/92 92 Room Air 09/04/16 07:24 36.7 101 18 167/92 92 Room Air 09/04/16 00:00 Room Air 09/03/16 22:53 36.6 70 18 142/76 96 Room Air 09/03/16 21:59 Room Air 09/03/16 20:00 Room Air 09/03/16 19:12 36.6 108 16 157/73 94 Room Air General Appearance: + thin, + pertinent finding (ill-appearing and frail) ENT: pharynx normal (mucous membranes moist) Respiratory/Chest: no respiratory distress, + decreased breath sounds (in the right lower field) Cardiovascular: regular rate, rhythm Abdomen/GI: non tender, soft Extremities/Musculoskelatal: no pedal edema, non-tender Neurologic/Psych: alert, oriented x 3 Laboratory Results Last 24 Hours Test 09/03/16 16:11 09/03/16 20:28 09/04/16 05:20 09/04/16 07:30 Bedside Glucose 133 mg/dl 128 mg/dl 98 mg/dl White Blood Count 13.90 K/uL Red Blood Count 4.58 M/uL Hemoglobin 9.8 g/dL Hematocrit 32.0 % Mean Corpuscular Volume 69.9 fL Mean Corpuscular Hemoglobin 21.4 pg Mean Corpuscular Hemoglobin Concent 30.6 g/dl Platelet Count 344 K/uL Mean Platelet Volume 10.2 fL Neutrophils (%) (Auto) 78.6 % Lymphocytes (%) (Auto) 11.5 % Monocytes (%) (Auto) 4.7 % Eosinophils (%) (Auto) 4.0 % Basophils (%) (Auto) 0.6 % Neutrophils # (Auto) 10.91 K/uL Lymphocytes # (Auto) 1.60 K/uL Monocytes # (Auto) 0.65 K/uL Eosinophils # (Auto) 0.56 K/uL Basophils # (Auto) 0.09 K/uL RDW Standard Deviation 45.9 fL RDW Coefficient of Variation 18.1 % Immature Granulocyte % (Auto) 0.6 % Immature Granulocyte # (Auto) 0.09 K/uL Anisocytosis PRESENT Microcytosis PRESENT Urine Color YELLOW Urine Appearance CLEAR Urine pH 5.5 Urine Specific [place] 1.034 Urine Protein NEG Urine Glucose (UA) NEG Urine Ketones NEG Urine Occult Blood NEG Urine Nitrite NEG Urine Bilirubin NEG Urine Urobilinogen NEG Urine Leukocyte Esterase NEG Sodium Level 141 mmol/L Potassium Level 3.6 mmol/L Chloride Level 109 mmol/L Carbon Dioxide Level 25 mmol/L Anion Gap 7.0 mmol/L Blood Urea Nitrogen 26 mg/dl Creatinine 1.20 mg/dl Est Creatinine Clear Calc Drug Dose 25.0 ml/min Estimated GFR () 47.4 Estimated GFR (Non- 40.9 BUN/Creatinine Ratio 21.8 Random Glucose 102 mg/dl Calcium Level 8.5 mg/dl Total Bilirubin 0.4 mg/dl Direct Bilirubin 0.1 mg/dl Aspartate Amino Transf (AST/SGOT) 47 U/L Alanine Aminotransferase (ALT/SGPT) 20 U/L Alkaline Phosphatase 747 U/L Total Protein 6.5 gm/dl Albumin 2.7 gm/dl Prealbumin 15.4 mg/dl Test 09/04/16 11:30 Bedside Glucose 113 mg/dl Assessment & Plan Ms. Rapp has what appears to be a locally invasive lung cancer with possible bone and hepatic metastases. Her hoarseness and dysphagia are likely related to recurrent laryngeal nerve involvement and/or direct involvement of the esophagus by tumor. Dr. Dotson attempted a bronchoscopy today, but she had redundant pharyngeal tissue that complicated the procedure. He obtained a BAL, but was not able to take biopsies. He has consulted ENT to help him establish a better airway for a future procedure. She is also ordered for a barium swallow to evaluate her swallow function. If her dysphagia is related to direct compression by tumor, she may need an esophageal stent, though these are less effective in extrinsic compression. Her treatment will depend upon her pathologic diagnosis. In the meantime, I would continue with supportive care and would work to ensure she has a reliable means of caloric intake prior to discharge.
[2016-09-04] MEDS ORDERED: ZOLPIDEM TARTRATE 5 MG TAB PO ONE (21:00)
[2016-09-05 01:00] VITALS: BP 163/90; PULSE 112; TEMP 36.4; O2SAT 90
[2016-09-05] MEDS: HydrALAZINE HCL 20 MG/ML VIAL IV. PRN ×2 (01:52→22:13)
[2016-09-05 03:46] VITALS: BP 157/83
[2016-09-05 07:10] LABS: BASO % 0.2 %; BASO ABS # 0.03 K/uL (0-0.2); EOS % 0.3 %; HEMATOCRIT 31.6 % (37-47); IG% 0.6 %; LYMPH % 5.9 %; LYMPH ABS # 1.07 K/uL (1.2-3.4); MEAN CELL VOLUME 69.8 fL (80-100); MEAN CORPUSCULAR HEMOGLOBIN 21.2 pg (25-34); MEAN CORPUSCULAR HGB CONC 30.4 g/dl (32-36); MEAN PLATELET VOLUME 10.2 fL (7.4-10.4); MONO % 2.8 %; NEUT % 90.2 %; PLATELET COUNT 316 K/uL (130-400); RED BLOOD COUNT 4.53 M/uL (4.2-5.4); WHITE BLOOD COUNT 18.15 K/uL (4.8-10.8)
[2016-09-05 07:17] VITALS: BP 159/83; PULSE 116; TEMP 36.5; O2SAT 91
[2016-09-05 07:32] LABS: COMPLETE YES; ECHINOCYTES 1+; MICROCYTOSIS PRESENT; POIKILOCYTOSIS PRESENT
[2016-09-05 07:58] LABS: BUN/CREATININE RATIO 23.8 (10-20); CALCIUM 8.4 mg/dl (8.5-10.1); CREATININE 0.86 mg/dl (0.60-1.20); POTASSIUM 3.4 mmol/L (3.5-5.1)
[2016-09-05] MEDS: HEPARIN SOD 5000 UNIT/0.5 ML CARP SQ SCH ×2 (09:30→20:42)
--- NOTE | 2016-09-05 11:08 | Hospitalist Progress Note ---
Hospitalist Progress Note Date of Service Sep 05, 2016. Subjective Pt evaluation today including: conversation w/ patient, conversation w/ family , physical exam, chart review, lab review, review of studies Pain: None PO Intake: NPO Voiding: no voiding problems The patient was seen and examined this morning. Pt reports feeling good today without acute complaints. Her only wish is that she can be allowed to eat/drink something. A video swallow eval is scheduled today at 11:30. Her family members , 2 sons and daughter in law are present at bedside. All their questions and concerns were addressed at bedside. Constitutional: + weakness, No chills, No fatigue, No fever, No sweats Eyes: No diplopia, No redness ENT: + dental problems, + trouble swallowing, No sore throat Respiratory: + dyspnea on exertion, + wheezing, No cough, No dyspnea at rest , No sputum Cardiovascular: No chest pain, No palpitations Abdomen: No constipation, No diarrhea, No nausea, No pain, No vomiting Musculoskeletal: No calf pain, No joint pain, No muscle pain, No swelling Female : No dysuria Neurologic: No balance problems, No weakness Skin: No itch, No rash Objective Vital Signs Date Time Temp Pulse Resp B/P Pulse Ox O2 Delivery O2 Flow Rate FiO2 09/05/16 07:17 36.5 116 20 159/83 91 Room Air 09/05/16 03:46 157/83 09/05/16 01:00 36.4 112 18 163/90 90 Room Air 09/05/16 00:00 Room Air 09/04/16 20:45 Room Air 09/04/16 19:24 36.5 115 17 162/95 98 Nasal Cannula 4.0 09/04/16 16:48 Room Air 09/04/16 16:30 147/84 09/04/16 14:45 36.3 119 20 160/92 94 Nasal Cannula 5.0 09/04/16 13:34 114 18 160/79 95 Nasal Cannula 4.0 09/04/16 10:46 102 147/80 96 Mask 4.0 Physical Exam General Appearance: WD/WN, no apparent distress, + thin Eyes: PERRL, EOMI ENT: hearing grossly normal, pharynx normal Neck: supple, no JVD Respiratory/Chest: chest non-tender, no respiratory distress, no accessory muscle use, + pertinent finding (on 2 L O2 via NC, + coarse breath sounds, + expiratory and inspiratory wheeze throughout) Cardiovascular: regular rate, rhythm, no murmur Abdomen: normal bowel sounds, non tender, soft Extremities: non-tender, no pedal edema, no calf tenderness Neurologic/Psychiatric: alert, normal mood/affect, oriented x 3 Skin: normal color, warm/dry Laboratory Results Last 24 Hours Test 09/04/16 11:30 09/04/16 16:18 09/04/16 20:25 09/05/16 06:25 Bedside Glucose 113 mg/dl 102 mg/dl 106 mg/dl White Blood Count 18.15 K/uL Red Blood Count 4.53 M/uL Hemoglobin 9.6 g/dL Hematocrit 31.6 % Mean Corpuscular Volume 69.8 fL Mean Corpuscular Hemoglobin 21.2 pg Mean Corpuscular Hemoglobin Concent 30.4 g/dl Platelet Count 316 K/uL Mean Platelet Volume 10.2 fL Neutrophils (%) (Auto) 90.2 % Lymphocytes (%) (Auto) 5.9 % Monocytes (%) (Auto) 2.8 % Eosinophils (%) (Auto) 0.3 % Basophils (%) (Auto) 0.2 % Neutrophils # (Auto) 16.38 K/uL Lymphocytes # (Auto) 1.07 K/uL Monocytes # (Auto) 0.50 K/uL Eosinophils # (Auto) 0.06 K/uL Basophils # (Auto) 0.03 K/uL RDW Standard Deviation 45.8 fL RDW Coefficient of Variation 18.0 % Immature Granulocyte % (Auto) 0.6 % Immature Granulocyte # (Auto) 0.11 K/uL Poikilocytosis PRESENT Microcytosis PRESENT Echinocytes 1+ Sodium Level 141 mmol/L Potassium Level 3.4 mmol/L Chloride Level 109 mmol/L Carbon Dioxide Level 22 mmol/L Anion Gap 10.0 mmol/L Blood Urea Nitrogen 20 mg/dl Creatinine 0.86 mg/dl Est Creatinine Clear Calc Drug Dose 35.1 ml/min Estimated GFR () 70.9 Estimated GFR (Non- 61.2 BUN/Creatinine Ratio 23.8 Random Glucose 81 mg/dl Calcium Level 8.4 mg/dl Magnesium Level 2.0 mg/dl Total Bilirubin 0.6 mg/dl Direct Bilirubin 0.1 mg/dl Aspartate Amino Transf (AST/SGOT) 94 U/L Alanine Aminotransferase (ALT/SGPT) 21 U/L Alkaline Phosphatase 964 U/L Total Protein 6.2 gm/dl Albumin 2.4 gm/dl Test 09/05/16 07:26 Bedside Glucose 96 mg/dl Assessment and Plan This is an 86-year-old female with past medical history of hypertension, osteoarthritis, 20 pound weight loss since March, dental implants placed in March, presenting to the ER after worsening weakness, fatigue and loss of appetite. New found bronchogenic mass - CT of the chest w/ RLL perihilar mass suspicious for bronchogenic carcinoma - measures 7 x 3.9 x 3.2 cm, there is also skeletal, hepatic, pulmonary and nodular masses present. There is pathological fracture involving T5 and T7. She has a right pleural effusion, and moderate emphysema. There is no PE. - Consulted heme/onc - pt is a poor candidate for chemotherapy and radiation due to significant weight loss. Will plan on video swallow today. - Pt is s/p bronchoscopy on 09/04: bronchial washings sent for pathology, appreciate thoracic medicine for management - Speech video swallow today. - Called and spoke with ENT, Dr. Manzo yesterday who said would be willing to see the pt on an outpatient basis, however his role in this is minimal, as heme/ onc and thoracic med are on board. - Consider palliative consult if pt determines that she doesn't want invasive testing, she is not in any pain so no need for analgesia. - PT/OT on board - Discussion was held with family and detailed discussion regarding plan, need for pathology reports, and possibility of hospice and palliative down the road. This discussion needs definitive plans from ENT and heme/onc an path reports and they are all in understanding of this. Shortness of breath on exertion - Noc ox test was done overnight and pt failed - will need O2 script prior to discharge. - Sats were 90% on room air earlier, now on 2 L, Pt with increased expiratory and inspiratory wheeze since having bronch done yesterday. - CT chest does not describe infectious etiology or appearance. Afebrile, no fever, sweats or chills. Would have a low threshold to starting the patient on antibiotic like zosyn if she shows any of these sx w/ hx of dysphagia. Elevated Alk Phos - Will trend LFTs, recheck tomorrow - AST leslie again yesterday, likely secondary to hepatic metastasis as pt without any abdominal pain Hoarse Voice - possible laryngeal nerve involvement, pt feels this is unchanged HTN Tachycardia - Continue daily amlodipine 5 mg - Can use prn hydralazine as needed for hypertension. DVT ppx: teds, scds, heparin CODE STATUS: FULL CODE Disposition: Patient from home, lives with son, CM to assist with discharge planning.
[2016-09-05] MEDS: NSS + 20MEQ KCL 1000ML 1,000 ML IV SCH ×2 (12:24→20:44)
--- NOTE | 2016-09-05 12:28 | DIAGNOSTIC IMAGING REPORT ---
MODIFIED BARIUM SWALLOW CLINICAL HISTORY: Fatigue and tachycardia. Evaluate for aspiration. COMPARISON STUDY: No previous studies for comparison. Fluoroscopy time: 1.3 minutes. FINDINGS: Extensive tracheal aspiration was noted with thin liquids. The swallowing mechanism was markedly impaired. No additional consistencies were evaluated. IMPRESSION: Extensive tracheal aspiration with markedly impaired swallowing mechanism. Full recommendations by speech pathology to follow. Electronically signed by: Jose Chaudhry M.D. 09/05/2016 12:26 PM Dictated Date/Time: 09/05/2016 12:25 PM
--- NOTE | 2016-09-05 16:13 | Palliative Care Consultation ---
Consultation Date of Consultation: Sep 05, 2016. Requesting Physician: Dr. Frias Attending Physician: Dr. Frias Reason for Consultation: Goals of care History of Present Illness This 86 year old female patient presented to the ED two days ago with c/o weakness, fatigue, and 20lb weight loss since March. In March, patient had dental implants placed, and since that time has had difficulty eating/ swallowing, regurgitating food, and now has a hoarse voice. the family thought it could be related to the dental work she had done. She lives with her son and as previously an independent woman, and in the last few days her weakness suddenly worsened so she was brought to the hospital. In the ED, CT of the chest showed RLL perihilar mass suspicious for bronchogenic carcinoma-- 7 x 3.9 x 3.2cm mass with skeletal, hepatic, and pulmonary masses/involvement, and other findings as well. She underwent bronchoscopy, but a tissue specimen could not be taken because of abnormal "redundant" tissue. washings were obtained and sent to pathology. Patient also had a swallow study done today and she unfortunately failed miserably. She is strict NPO status at this time. This patient needs a repeat bronchoscopy for diagnosis of suspected NSCLC, and also needs a means of nutrition if she is wanting to treat this cancer. Family expressed the desire to have patient transferred to [facility] [address] in [place]. Palliative care consulted to assist with establishing goals of care. Dr. Hamilton, oncologist, and I had a very lengthy discussion with the patient her family-- 2 sons and a [id number]. Dr. Hamilton provided them with a great deal of information about potential diagnoses and treatments associated. Next steps would be to decide on treating cancer vs. not treating cancer, if treating, patient needs repeat bronchoscopy with proper intubation and a means of nutrition. They understand there is no need for immediate transfer to a tertiary care facility. We also discussed patient's wishes and goals of care. The patient and family understand that treatment for the cancer would be to prolong life, not to cure the cancer. Feeding options were discussed: PEG tube ( preferred) vs. TPN (not preferred); and also presented idea of comfort measures only and allowing nature to take its course. Patient immediately said that she really wouldn't want a feeding tube, but she is still not certain she would not want to treat the cancer. Patient and family understand that if she has no means of nutrition there is no hope of treating the cancer at all. Her family asked if she would starve to without a means of feeding and they were educated on the end-of-life process. Patient denied any feelings of hunger or thirst at this time and said she actually has not been uncomfortable at all throughout this process. The family would like time to discuss amongst themselves and sleep on it. Will follow up tomorrow. Past Medical/Surgical History Medical History: Hypertension Social History Smoking Status: Former Smoker History of Alcohol Use: No Drug Use: none Marital Status: Housing Status: lives with family (son at bedside) Occupation Status: retired Review of Systems Constitutional: + fatigue, + weakness, + weight loss ENT: + trouble swallowing Respiratory: No dyspnea on exertion, No shortness of breath Cardiac: No chest pain, No edema Abdomen: + vomiting (regurgitation after eating), No nausea, No pain Psychiatric: No anxiety Allergies Coded Allergies: No Known Allergies (Unverified , 03/16/07) Medications Current Inpatient Medications Medications (Trade) Dose Ordered Sig/Holly Route Start Time Stop Time Status Last Admin Dose Admin Ioversol (Optiray 320) 125 ml UD PRN IV 09/03/16 10:00 09/07/16 09:59 Acetaminophen (Tylenol Tab) 650 mg Q4H PRN PO 09/03/16 13:00 10/03/16 12:59 Magnesium Hydroxide (Milk Of Magnesia Susp) 30 ml Q6H PRN PO 09/03/16 13:00 10/03/16 12:59 Polyethylene (Miralax Powder Packet) 17 gm DAILY PRN PO 09/03/16 13:00 10/03/16 12:59 Ondansetron HCl (Zofran Inj) 4 mg Q6H PRN IV 09/03/16 13:00 10/03/16 12:59 Amlodipine Besylate (Norvasc Tab) 5 mg DAILY PO 09/04/16 08:00 10/04/16 08:59 Multivitamins (Multivitamin Tab) 1 tab QAM PO 09/04/16 08:00 10/04/16 08:59 Hydralazine HCl (HydrALAZINE INJ) 10 mg Q4 PRN IV. 09/03/16 14:00 10/03/16 13:59 09/05/16 01:52 10 MG Heparin Sodium (Porcine) (Heparin Sq 5000 Unit/0.5ml) 5,000 unit Q12 SQ 09/03/16 21:00 10/03/16 20:59 09/05/16 09:30 5,000 UNIT Hydralazine HCl 20 mg 20 mg Q8 PRN IV. 09/04/16 08:15 10/04/16 08:14 Potassium Chloride/Sodium Chloride (Nss + 20meq KCl 1000ml) 1,000 ml @ 100 mls/hr Q10H IV 09/05/16 11:15 10/05/16 11:14 09/05/16 12:24 100 MLS/HR Physical Exam Date Time Temp Pulse Resp B/P Pulse Ox O2 Delivery O2 Flow Rate FiO2 09/05/16 09:30 Room Air 09/05/16 07:17 36.5 116 20 159/83 91 Room Air 09/05/16 03:46 157/83 09/05/16 01:00 36.4 112 18 163/90 90 Room Air 09/05/16 00:00 Room Air 09/04/16 20:45 Room Air 09/04/16 19:24 36.5 115 17 162/95 98 Nasal Cannula 4.0 09/04/16 16:48 Room Air 09/04/16 16:30 147/84 General Appearance: no apparent distress, + cachetic, + thin ENT: hearing grossly normal, + muffled/hoarse voice Neck: supple, no JVD Respiratory: no respiratory distress, no accessory muscle use, + pertinent finding (2LNC) Cardiovascular: regular rate, rhythm, no edema Neurologic/Psychiatric: alert, normal mood/affect, oriented x 3 Laboratory Results Last 24 Hours Test 09/04/16 16:18 09/04/16 20:25 09/05/16 06:25 09/05/16 07:26 Bedside Glucose 102 mg/dl 106 mg/dl 96 mg/dl White Blood Count 18.15 K/uL Red Blood Count 4.53 M/uL Hemoglobin 9.6 g/dL Hematocrit 31.6 % Mean Corpuscular Volume 69.8 fL Mean Corpuscular Hemoglobin 21.2 pg Mean Corpuscular Hemoglobin Concent 30.4 g/dl Platelet Count 316 K/uL Mean Platelet Volume 10.2 fL Neutrophils (%) (Auto) 90.2 % Lymphocytes (%) (Auto) 5.9 % Monocytes (%) (Auto) 2.8 % Eosinophils (%) (Auto) 0.3 % Basophils (%) (Auto) 0.2 % Neutrophils # (Auto) 16.38 K/uL Lymphocytes # (Auto) 1.07 K/uL Monocytes # (Auto) 0.50 K/uL Eosinophils # (Auto) 0.06 K/uL Basophils # (Auto) 0.03 K/uL RDW Standard Deviation 45.8 fL RDW Coefficient of Variation 18.0 % Immature Granulocyte % (Auto) 0.6 % Immature Granulocyte # (Auto) 0.11 K/uL Poikilocytosis PRESENT Microcytosis PRESENT Echinocytes 1+ Sodium Level 141 mmol/L Potassium Level 3.4 mmol/L Chloride Level 109 mmol/L Carbon Dioxide Level 22 mmol/L Anion Gap 10.0 mmol/L Blood Urea Nitrogen 20 mg/dl Creatinine 0.86 mg/dl Est Creatinine Clear Calc Drug Dose 35.1 ml/min Estimated GFR () 70.9 Estimated GFR (Non- 61.2 BUN/Creatinine Ratio 23.8 Random Glucose 81 mg/dl Calcium Level 8.4 mg/dl Magnesium Level 2.0 mg/dl Total Bilirubin 0.6 mg/dl Direct Bilirubin 0.1 mg/dl Aspartate Amino Transf (AST/SGOT) 94 U/L Alanine Aminotransferase (ALT/SGPT) 21 U/L Alkaline Phosphatase 964 U/L Total Protein 6.2 gm/dl Albumin 2.4 gm/dl Assessment & Plan Problem list: Weakness Fatigue Anorexia/weight loss/Failure to thrive Dysphagia, aspiration risk- NPO Possible lung cancer with mets to bone and liver Goals of care (Z51.5) Palliative care recommendations: discussed with patient, 2 sons, DIL and Dr. Abdulaziz Brothers -No transfer to another facility at this time -Continue family discussion of treatment options -Feeding tube and cancer treatment vs. comfort measures only and allowing comfort feeds -Patient has zero symptoms at this time other than the dysphagia and hoarse voice -She is a level 5 DNR/DNI per her wishes Thank you kindly for this consult. I will follow.
[2016-09-05 17:15] VITALS: BP 169/93; PULSE 123; TEMP 36.3; O2SAT 96
[2016-09-05 19:52] VITALS: BP 177/96; PULSE 112; TEMP 36.3; O2SAT 94
[2016-09-05 22:20] VITALS: BP 167/89
[2016-09-06 03:50] VITALS: BP 180/94; PULSE 109; TEMP 36.3; O2SAT 96
[2016-09-06] MEDS: HydrALAZINE HCL 20 MG/ML VIAL IV. PRN (03:55)
[2016-09-06 06:16] LABS: BASO % 0.2 %; BASO ABS # 0.03 K/uL (0-0.2); EOS % 0.5 %; HEMATOCRIT 33.2 % (37-47); IG% 1.2 %; LYMPH % 5.8 %; LYMPH ABS # 0.85 K/uL (1.2-3.4); MEAN CELL VOLUME 69.7 fL (80-100); MEAN CORPUSCULAR HEMOGLOBIN 21.2 pg (25-34); MEAN CORPUSCULAR HGB CONC 30.4 g/dl (32-36); MEAN PLATELET VOLUME 9.6 fL (7.4-10.4); MONO % 5.3 %; PLATELET COUNT 304 K/uL (130-400); RED BLOOD COUNT 4.76 M/uL (4.2-5.4); WHITE BLOOD COUNT 14.62 K/uL (4.8-10.8)
[2016-09-06 06:46] LABS: ALKALINE PHOSPHATASE 939 U/L (45-117); ALT/SGPT 21 U/L (12-78); AST/SGOT 66 U/L (15-37)
[2016-09-06 07:10] LABS: ACANTHOCYTES 1+; COMPLETE YES; ECHINOCYTES 2+; HYPOCHROMIA PRESENT; MICROCYTOSIS PRESENT
[2016-09-06 07:27] VITALS: BP 165/84; PULSE 119; TEMP 36.4; O2SAT 97
[2016-09-06] MEDS: NSS + 20MEQ KCL 1000ML 1,000 ML IV SCH ×2 (07:38→18:26)
--- NOTE | 2016-09-06 09:03 | Hospitalist Progress Note ---
Hospitalist Progress Note Date of Service Sep 06, 2016. Subjective Pt evaluation today including: conversation w/ patient, physical exam, chart review, lab review, review of studies Pain: None PO Intake: NPO Voiding: no voiding problems The patient was seen and examined this morning. Pt reports feeling good, no pain , no acute complaints other than needing to role the IVF pole with her when she uses the bathroom. She also is complaining of a very dry mouth. Her family is not present in the room this morning, but will be here later today. The patient told me "I want to get better, I'm not sure what I want to do". She tells me "I do not want to suffer or only live the next 6 months." - that she isn't ready to , and is considering giving treatment a try. She seems to understand that with treatment comes the need for increased nutrition because of her significant weight loss, and that this would likely involve a peg tube placement. She is still considering if she wants a peg tube placed or not. She is also uncertain if she wants to move her care to [facility] but seems to be leaning this way. I have asked her to think about this in regards to it being her decision, her body, and her life. She is very appreciative today and plans to discuss with family when they come in later. Additional Comments: 10 point ROS was reviewed and otherwise negative. Objective Vital Signs Date Time Temp Pulse Resp B/P Pulse Ox O2 Delivery O2 Flow Rate FiO2 09/06/16 08:00 Nasal Cannula 2.0 09/06/16 07:27 36.4 119 18 165/84 97 Nasal Cannula 2.0 09/06/16 03:50 36.3 109 22 180/94 96 Nasal Cannula 2.0 09/06/16 00:10 Nasal Cannula 2.0 09/05/16 22:20 167/89 09/05/16 19:52 36.3 112 18 177/96 94 Nasal Cannula 2.0 09/05/16 17:15 36.3 123 18 169/93 96 Nasal Cannula 2.0 09/05/16 16:00 Room Air 09/05/16 09:30 Room Air Physical Exam Notes: General Appearance: WD/WN, no apparent distress, + thin Eyes: PERRL, EOMI ENT: hearing grossly normal, pharynx normal Neck: supple, no JVD Respiratory/Chest: chest non-tender, no respiratory distress, no accessory muscle use, + pertinent finding (+ cough with white sputum, on 2 L O2 via NC, + coarse breath sounds, + rhales, minimal wheeze today) Cardiovascular: regular rate, rhythm, no murmur Abdomen: normal bowel sounds, non tender, soft Extremities: non-tender, no pedal edema, no calf tenderness Neurologic/Psychiatric: alert, normal mood/affect, oriented x 3 Skin: normal color, warm/dry Laboratory Results Last 24 Hours Test 09/05/16 16:44 09/06/16 05:37 Bedside Glucose 75 mg/dl White Blood Count 14.62 K/uL Red Blood Count 4.76 M/uL Hemoglobin 10.1 g/dL Hematocrit 33.2 % Mean Corpuscular Volume 69.7 fL Mean Corpuscular Hemoglobin 21.2 pg Mean Corpuscular Hemoglobin Concent 30.4 g/dl Platelet Count 304 K/uL Mean Platelet Volume 9.6 fL Neutrophils (%) (Auto) 87.0 % Lymphocytes (%) (Auto) 5.8 % Monocytes (%) (Auto) 5.3 % Eosinophils (%) (Auto) 0.5 % Basophils (%) (Auto) 0.2 % Neutrophils # (Auto) 12.71 K/uL Lymphocytes # (Auto) 0.85 K/uL Monocytes # (Auto) 0.78 K/uL Eosinophils # (Auto) 0.07 K/uL Basophils # (Auto) 0.03 K/uL RDW Standard Deviation 46.0 fL RDW Coefficient of Variation 18.1 % Immature Granulocyte % (Auto) 1.2 % Immature Granulocyte # (Auto) 0.18 K/uL Hypochromasia PRESENT Microcytosis PRESENT Echinocytes 2+ Acanthocytes 1+ Total Bilirubin 0.5 mg/dl Direct Bilirubin < 0.1 mg/dl Aspartate Amino Transf (AST/SGOT) 66 U/L Alanine Aminotransferase (ALT/SGPT) 21 U/L Alkaline Phosphatase 939 U/L Total Protein 6.2 gm/dl Albumin 2.4 gm/dl Assessment and Plan This is an 86-year-old female with past medical history of hypertension, osteoarthritis, 20 pound weight loss since March, dental implants placed in March, presenting to the ER after worsening weakness, fatigue and loss of appetite. New found bronchogenic mass - CT of the chest w/ RLL perihilar mass suspicious for bronchogenic carcinoma - measures 7 x 3.9 x 3.2 cm, there is also skeletal, hepatic, pulmonary and nodular masses present. There is pathological fracture involving T5 and T7. She has a right pleural effusion, and moderate emphysema. There is no PE. - Consulted heme/onc - pt is a poor candidate for chemotherapy and radiation due to significant weight loss. Video swallow was completed, pt is still strict NPO. Discussion regarding placement of peg tube was held by heme/onc and palliative last night, will await their recommendations. Pt is not sure what her decision is regarding nutrition. - Pt is s/p bronchoscopy on 09/04: bronchial washings sent for pathology, appreciate thoracic medicine for management - Palliative consulted- appreciate recs - PT/OT on board - Discussion was held with patient regarding plan, need for pathology reports, and possibility of hospice/palliative care vs more aggressive treatment. Pt is still not sure that she would want artificial nutrition. She seems to be leaning toward attempting some type of treatment for this rather than palliative as this is a new diagnosis, and she was living a relatively normal life prior to her admission. It appears the suspected malignancy is late stage , so therefore I do not know how much more chemotherapy/xrt/aggressive measures would benefit her, especially since her nutritional status is poor considering weight loss of 40 lbs since Nov. Will allow the patient to absorb the news of suspected/likely malignancy, and give more time for her to decide what she would like to do. Shortness of breath on exertion - Noc ox test was done overnight and pt failed - will need O2 script prior to discharge. - Sats were 90% on room air earlier, now on 2 L, Pt with rhales since bronch, still with cough productive of white sputum - CT chest does not describe infectious etiology or appearance. Afebrile, no fever, sweats or chills. Would have a low threshold to starting the patient on antibiotic like zosyn if she shows any of these sx w/ hx of dysphagia. Elevated Alk Phos - LFTs are trending downward slightly - likely secondary to hepatic metastasis as pt without any abdominal pain Hoarse Voice - possible laryngeal nerve involvement, pt feels this is unchanged and is one of her complaints. HTN Tachycardia - resolved - Continue daily amlodipine 5 mg - Can use prn hydralazine as needed for hypertension. DVT ppx: teds, scds, heparin CODE STATUS: FULL CODE Disposition: Patient from home, lives with son, CM to assist with discharge planning, possible tx to tertiary care center - unknown.
--- NOTE | 2016-09-06 09:26 | Hematology/Oncology Prog Note ---
Hematology/Onc Progress Note Date of Service Sep 05, 2016. Diagnoses Likely metastatic lung cancer Dysphagia and swallowing dysfunction Medications Medications Administered Medications (Trade) Dose Ordered Sig/Holly Route Start Time Stop Time Status Last Admin Dose Admin Sodium Chloride (Nss 1000ml) 1,000 ml @ 999 mls/hr Q1H1M STAT IV 09/03/16 09:39 09/03/16 10:39 DC 09/03/16 09:39 999 MLS/HR Albuterol/ Ipratropium (Duoneb) 12 ml ONE ONCE INH 09/03/16 10:00 09/03/16 10:01 DC 09/03/16 10:41 12 ML Hydralazine HCl (HydrALAZINE INJ) 10 mg Q4 PRN IV. 09/03/16 14:00 10/03/16 13:59 09/06/16 03:55 10 MG Heparin Sodium (Porcine) 5000 unit 5,000 unit Q12 SQ 09/03/16 21:00 10/03/16 20:59 09/05/16 20:42 5,000 UNIT Sodium Chloride 1,000 ml @ 100 mls/hr Q10H IV 09/03/16 16:15 09/05/16 10:44 DC 09/04/16 22:35 100 MLS/HR Dextrose (D5W 1000ml) 1,000 ml @ 50 mls/hr Q20H IV 09/03/16 19:30 09/04/16 16:54 DC 09/03/16 20:53 50 MLS/HR Zolpidem Tartrate 5 mg 5 mg STK-MED ONCE .ROUTE 09/03/16 21:41 09/03/16 21:42 DC 09/03/16 21:37 5 MG Potassium Chloride/Sodium Chloride (Nss + 20meq KCl 1000ml) 1,000 ml @ 100 mls/hr Q10H IV 09/05/16 11:15 10/05/16 11:14 09/06/16 07:38 100 MLS/HR Subjective Ms. Rapp is comfortable in bed. She denies any pain or sensation of hunger. She and her family are very concerned about the plans for her cancer and are considering a transfer to a tertiary care center. Review of Systems: Constitutional: + fatigue, No fever ENT: + trouble swallowing Respiratory: No cough, No shortness of breath Cardiovascular: No chest pain Abdomen: No nausea, No pain Musculoskeletal: No joint pain, No muscle pain Heme: No abnormal bleeding/bruising Vital Signs Vital Signs Past 12 Hours Date Time Temp Pulse Resp B/P Pulse Ox O2 Delivery O2 Flow Rate FiO2 09/06/16 08:00 Nasal Cannula 2.0 09/06/16 07:27 36.4 119 18 165/84 97 Nasal Cannula 2.0 09/06/16 03:50 36.3 109 22 180/94 96 Nasal Cannula 2.0 09/06/16 00:10 Nasal Cannula 2.0 09/05/16 22:20 167/89 Physical Exam Constitutional: General Apperance: too thin Level of Distress: chronically ill (frail appearing and weak) Psychiatric: Mental Status: active & alert Orientation: oriented except where noted Lungs: Respiratory Effort: no dyspnea Auscuitation: CTA except as noted Cardiovascular: Heart Auscultation: RRR Abdomen: Inspection & Palpation: soft, no tenderness, guarding & rebound Extremities: no edema Assessment & Plan In the company of palliative care, I had a very lengthy (~60 min) conversation with Ms. Rapp, her two sons, and her [id number] regarding plans for her care. The most pressing issue facing Ms. Rapp at this time is her inability to swallow. She failed a barium swallow yesterday and has little to no swallowing function. As a result, it will not be safe for her to take food by mouth. Without a reliable route for feeding, she would not be a candidate for any kind of aggressive anti-cancer therapy. Her options would include a PICC line and TPN, which I feel is a markedly inferior option, or a PEG tube. The goal of a feeding tube in her case would be to support her though the beginning of her treatment, until such time as her disease responds enough for her to tolerate oral feeding again. However, I was careful to note that, even if she were to have a PEG tube placed, there is no guarantee she would improve to a point where she would be a candidate for chemotherapy. Furthermore, even if she does begin treatment, there is no guarantee the therapy would be tolerable or effective. Another option would be palliative radiation, but this would still require her to have a feeding tube placed, as it is not an instant fix and again there is not a guarantee it would be effective. She expressed reticence regarding the PEG tube, though she did not entirely rule it out. If she wanted to proceed, we would place it during the surgery planned to sample her tumor. If she opts against the tube, I would recommend hospice care. Furthermore, if she does not think she would want chemotherapy, about which she also expressed concerns, I would recommend against a feeding tube. PEG tubes are bridges to more definitive therapy and do not play a role in hospice/end-of-life care. She was not ready to make a decision at this time. I told her we would readdress this question again tomorrow.
[2016-09-06] MEDS: MULTIVITAMIN TAB PO SCH (09:33)
[2016-09-06] MEDS: HEPARIN SOD 5000 UNIT/0.5 ML CARP SQ SCH ×2 (09:33→19:57)
[2016-09-06] MEDS: AMLODIPINE BESYLATE 5 MG TAB PO SCH (09:33)
--- NOTE | 2016-09-06 09:45 | Gastrointestinal Consultation ---
Gastrointestinal Consultation Date of Consultation: Sep 06, 2016 Attending Physician: Dr. Frias Consulting Physician: Dr. Serrano/YAYO Gamble Reason for Consultation: Dysphagia, failed video swallow History of Present Illness Patient is a 86 year old female with a history of recent unintentional weight loss and dysphagia presenting with progressive weakness and new diagnosis of metastatic non-small cell lung cancer. She has been having poor PO intake and underwent a video swallow study yesterday which demonstrated cy aspiration of all consistencies. She is not felt a candidate for any PO intake and has been placed NPO and on strict aspiration precautions. She denies any nausea or vomiting, abdominal pain, diarrhea, constipation, melena or hematochezia. She has been seen by palliative care and is determining her treatment plan. She is unsure if she would like to go home with hospice or seek treatment options. She is aware of the poor prognosis of her disease process. With that said, she is very uncertain if she would like to proceed with PEG tube placement as discussed with her by the primary team. She has not taken any oral intake in several days per her report. She does report a very dry mouth and she is using oral rinsing swabs and Biotene to help with this. She states her daughter-in- law is assisting in her medical decision making process but she is ultimately going to make final determinations and she is unclear about her wishes in regard to supplemental nutrition. Past Medical/Surgical History Medical Problems: (1) Lung mass Status: Acute Past Medical History: 1. Acute sinusitis 2. Bronchitis 3. Hypertension 4. Osteoarthritis 5. Low back pain Past Surgical History: No reported surgical history Family History Hypertension Negative for GI malignancy or IBD Social History Smoking Status: Former Smoker Alcohol Use: none Drug Use: none Marital Status: Housing Status: lives with family Occupation Status: retired Allergies Coded Allergies: No Known Allergies (Unverified , 03/16/07) Current Medications Home Meds and Scripts Medications Dose Route/Sig Max Daily Dose Days Date Category Norvasc (Amlodipine Besylate) 5 Mg Tab 5 Mg PO DAILY 09/03/16 Reported Review of Systems See HPI for pertinent positives & negatives. A total of 10 systems reviewed and were otherwise negative. Physical Exam Date Time Temp Pulse Resp B/P Pulse Ox O2 Delivery O2 Flow Rate FiO2 09/06/16 08:00 Nasal Cannula 2.0 09/06/16 07:27 36.4 119 18 165/84 97 Nasal Cannula 2.0 09/06/16 03:50 36.3 109 22 180/94 96 Nasal Cannula 2.0 09/06/16 00:10 Nasal Cannula 2.0 09/05/16 22:20 167/89 09/05/16 19:52 36.3 112 18 177/96 94 Nasal Cannula 2.0 09/05/16 17:15 36.3 123 18 169/93 96 Nasal Cannula 2.0 09/05/16 16:00 Room Air 09/05/16 09:30 Room Air General Appearance: no apparent distress Eyes: EOMI ENT: hearing grossly normal Neck: supple Respiratory/Chest: lungs clear, normal breath sounds, no respiratory distress Cardiovascular: regular rate, rhythm, no gallop, no murmur Abdomen: normal bowel sounds, non tender, soft Extremities: no pedal edema Skin: warm/dry Laboratory Results Last 24 Hours Test 09/05/16 16:44 09/06/16 05:37 Bedside Glucose 75 mg/dl White Blood Count 14.62 K/uL Red Blood Count 4.76 M/uL Hemoglobin 10.1 g/dL Hematocrit 33.2 % Mean Corpuscular Volume 69.7 fL Mean Corpuscular Hemoglobin 21.2 pg Mean Corpuscular Hemoglobin Concent 30.4 g/dl Platelet Count 304 K/uL Mean Platelet Volume 9.6 fL Neutrophils (%) (Auto) 87.0 % Lymphocytes (%) (Auto) 5.8 % Monocytes (%) (Auto) 5.3 % Eosinophils (%) (Auto) 0.5 % Basophils (%) (Auto) 0.2 % Neutrophils # (Auto) 12.71 K/uL Lymphocytes # (Auto) 0.85 K/uL Monocytes # (Auto) 0.78 K/uL Eosinophils # (Auto) 0.07 K/uL Basophils # (Auto) 0.03 K/uL RDW Standard Deviation 46.0 fL RDW Coefficient of Variation 18.1 % Immature Granulocyte % (Auto) 1.2 % Immature Granulocyte # (Auto) 0.18 K/uL Hypochromasia PRESENT Microcytosis PRESENT Echinocytes 2+ Acanthocytes 1+ Total Bilirubin 0.5 mg/dl Direct Bilirubin < 0.1 mg/dl Aspartate Amino Transf (AST/SGOT) 66 U/L Alanine Aminotransferase (ALT/SGPT) 21 U/L Alkaline Phosphatase 939 U/L Total Protein 6.2 gm/dl Albumin 2.4 gm/dl Impression Patient is a 86 year old female with newly diagnosed metastatic non-small cell lung cancer with dysphagia and cy aspiration on video swallow. Plan I had a long discussion with the patient about the risks vs benefits of PEG tube placement. I did inform her that the tube would not guarantee that she will not aspirate in the future as she can continue to aspirate oral secretions. I also advised the risks of continued oral intake which can lead to aspiration pneumonia with progressive morbidity and possible mortality. She has been without nutritional support for several days but is receiving IV hydration. At the end of our discussion, she is unclear as to whether she would like to proceed with a PEG tube placement at this time. We also discussed temporary NG placement for nutritional assistance. She again was not ready to consent to this option either. She plans to discuss her options again with her family prior to deciding if she would like to proceed with PEG tube placement. Unfortunately, her overall clinical prognosis is rather poor. We will continue to follow her clinical course and can certainly proceed with the PEG procedure should she opt for this approach. Thank you for allowing us to participate in the care of this pleasant patient. If you have any questions or concerns, please do not hesitate to contact us. Agree with YAYO Gamble as above Abd: Soft, NT, ND Patient with widely metastatic Lung CA. Although she is agreeable to a PEG tube following discussion with her family, she is at significant risk to undergo this procedure. I discussed the case with Dr. Dotson, and patient had difficulty undergoing Bronchoscopy secondary to respiratory difficulty. Currently, I would recommend a Coresafe feeding tube to be placed by nursing at patient's bedside for temporary nutritional goals. Decision was made to obtain further tissue via Lymph node biopsy, as this is less invasive. Family stated that they plan to move patient to Son's house in [place] area when she is stable for transport, as his house is set up for hospice, as he and his previously cared for one of his in-laws at their home. Son stated that his home is close to [place], where they would receive her further care.
--- NOTE | 2016-09-06 14:03 | Pulmonology Progress Note ---
Pulmonary Progress Note Date of Service Sep 06, 2016. Attending Dr. Dotson Subjective Patient notes increased fatigue and SOB over the last 24 hours Objective Patient is not tachypneic, not using accessory muscles of ventilation at this time or showing other signs of respiratory compromise. VS: stable on 2L nc RESP: CTA bilaterally CARD: s1s2 rrr no m/r/g Modified Barium Swallow (09/05/16) Extensive tracheal aspiration with markedly impaired swallowing mechanism. BAL (09/04/2016) No microbiologic growth to date LUNG, RIGHT LOWER LOBE (CYTOLOGIC EVALUATION OF A BRONCHIAL WASH SPECIMEN): 1. MALIGNANT CELLS CONSISTENT WITH A NON-SMALL CELL CARCINOMA ARE SEEN. 2. THE CYTOLOGIC FEATURES ARE CONSISTENT WITH AN ADENOCARCINOMA. Assessment & Plan 86y/o female with lung mass and atypical/malignant cells on BAL 1) Lung Mass: It appears at this time we are dealing with a primary adenocarcinoma of the lung. I have spoken to pathology and we do need more tissue to evaluate for VEGF or other receptor responsive therapies. The patient and family want to be aggressive at this time. I spoke with Dr. Rosalina Brothers and we both agree prior to any treatment the patient will require a PEG to and more tissue. I will speak to GI about this issue an see if an EUS with PEG tube placement can be performed. If not I can perform EBUS with EGD and PEG tube placement. This is most likely a stage IV lung malignancy and further work-up with PET scan and possible CT/MRI of the head can be performed as an outpatient. I will also consult RAD-ONC at this time. Data Medications: Current Inpatient Medications Medications (Trade) Dose Ordered Sig/Holly Route Start Time Stop Time Status Last Admin Dose Admin Ioversol (Optiray 320) 125 ml UD PRN IV 09/03/16 10:00 09/07/16 09:59 Acetaminophen (Tylenol Tab) 650 mg Q4H PRN PO 09/03/16 13:00 10/03/16 12:59 Magnesium Hydroxide (Milk Of Magnesia Susp) 30 ml Q6H PRN PO 09/03/16 13:00 10/03/16 12:59 Polyethylene (Miralax Powder Packet) 17 gm DAILY PRN PO 09/03/16 13:00 10/03/16 12:59 Ondansetron HCl (Zofran Inj) 4 mg Q6H PRN IV 09/03/16 13:00 10/03/16 12:59 Amlodipine Besylate (Norvasc Tab) 5 mg DAILY PO 09/04/16 08:00 10/04/16 08:59 Multivitamins (Multivitamin Tab) 1 tab QAM PO 09/04/16 08:00 10/04/16 08:59 Heparin Sodium (Porcine) (Heparin Sq 5000 Unit/0.5ml) 5,000 unit Q12 SQ 09/03/16 21:00 10/03/16 20:59 09/06/16 09:33 5,000 UNIT Hydralazine HCl 20 mg 20 mg Q8 PRN IV. 09/04/16 08:15 10/04/16 08:14 Potassium Chloride/Sodium Chloride (Nss + 20meq KCl 1000ml) 1,000 ml @ 100 mls/hr Q10H IV 09/05/16 11:15 10/05/16 11:14 09/06/16 07:38 100 MLS/HR I & O: 24-Hour Column 09/06/16 08:00 Intake Total 1669 ml Output Total 850 ml Balance 819 ml Vital Signs: Date Time Temp Pulse Resp B/P Pulse Ox O2 Delivery O2 Flow Rate FiO2 09/06/16 08:00 Nasal Cannula 2.0 09/06/16 07:27 36.4 119 18 165/84 97 Nasal Cannula 2.0 09/06/16 03:50 36.3 109 22 180/94 96 Nasal Cannula 2.0 09/06/16 00:10 Nasal Cannula 2.0 09/05/16 22:20 167/89 09/05/16 19:52 36.3 112 18 177/96 94 Nasal Cannula 2.0 09/05/16 17:15 36.3 123 18 169/93 96 Nasal Cannula 2.0 09/05/16 16:00 Room Air Laboratory Results: Last 24 Hours Test 09/05/16 16:44 09/06/16 05:37 Bedside Glucose 75 mg/dl White Blood Count 14.62 K/uL Red Blood Count 4.76 M/uL Hemoglobin 10.1 g/dL Hematocrit 33.2 % Mean Corpuscular Volume 69.7 fL Mean Corpuscular Hemoglobin 21.2 pg Mean Corpuscular Hemoglobin Concent 30.4 g/dl Platelet Count 304 K/uL Mean Platelet Volume 9.6 fL Neutrophils (%) (Auto) 87.0 % Lymphocytes (%) (Auto) 5.8 % Monocytes (%) (Auto) 5.3 % Eosinophils (%) (Auto) 0.5 % Basophils (%) (Auto) 0.2 % Neutrophils # (Auto) 12.71 K/uL Lymphocytes # (Auto) 0.85 K/uL Monocytes # (Auto) 0.78 K/uL Eosinophils # (Auto) 0.07 K/uL Basophils # (Auto) 0.03 K/uL RDW Standard Deviation 46.0 fL RDW Coefficient of Variation 18.1 % Immature Granulocyte % (Auto) 1.2 % Immature Granulocyte # (Auto) 0.18 K/uL Hypochromasia PRESENT Microcytosis PRESENT Echinocytes 2+ Acanthocytes 1+ Total Bilirubin 0.5 mg/dl Direct Bilirubin < 0.1 mg/dl Aspartate Amino Transf (AST/SGOT) 66 U/L Alanine Aminotransferase (ALT/SGPT) 21 U/L Alkaline Phosphatase 939 U/L Total Protein 6.2 gm/dl Albumin 2.4 gm/dl
[2016-09-06 16:00] VITALS: BP 180/100; PULSE 116
[2016-09-06 16:53] VITALS: BP 134/70; PULSE 122; TEMP 36.4; O2SAT 97
[2016-09-06 19:27] VITALS: BP 151/79; PULSE 120; TEMP 36.6; O2SAT 96
[2016-09-06 23:53] VITALS: BP 177/91; PULSE 116; TEMP 36.5; O2SAT 97
[2016-09-07] VITALS (9 sets, daily range): BP systolic 116–196; BP diastolic 71–107; PULSE 112–127; TEMP 36.3–36.6; O2SAT 96–97; Ht 162.6 cm; Wt 47.6 kg
[2016-09-07] MEDS: NSS + 20MEQ KCL 1000ML 1,000 ML IV SCH (03:04)
[2016-09-07 06:04] LABS: BASO % 0.3 %; BASO ABS # 0.04 K/uL (0-0.2); EOS % 1.1 %; IG% 1.5 %; LYMPH % 5.9 %; MEAN CELL VOLUME 69.9 fL (80-100); MEAN CORPUSCULAR HEMOGLOBIN 21.9 pg (25-34); MEAN CORPUSCULAR HGB CONC 31.3 g/dl (32-36); MEAN PLATELET VOLUME 10.1 fL (7.4-10.4); MONO % 6.1 %; NEUT % 85.1 %; PLATELET COUNT 298 K/uL (130-400); RED BLOOD COUNT 4.29 M/uL (4.2-5.4); WHITE BLOOD COUNT 15.16 K/uL (4.8-10.8)
[2016-09-07 06:26] LABS: COMPLETE YES; ECHINOCYTES 1+; MICROCYTOSIS PRESENT
[2016-09-07 06:37] LABS: BUN/CREATININE RATIO 27.3 (10-20); CALCIUM 8.5 mg/dl (8.5-10.1); CREATININE 0.8 mg/dl (0.60-1.20); MAGNESIUM 2.1 mg/dl (1.8-2.4); POTASSIUM 3.9 mmol/L (3.5-5.1)
[2016-09-07] MEDS: HydrALAZINE HCL 20 MG/ML VIAL IV. PRN ×2 (07:42→22:37)
[2016-09-07] MEDS: MULTIVITAMIN TAB PO SCH (07:42)
[2016-09-07] MEDS: AMLODIPINE BESYLATE 5 MG TAB PO SCH (07:42)
[2016-09-07] MEDS: HEPARIN SOD 5000 UNIT/0.5 ML CARP SQ SCH ×2 (07:44→20:44)
--- NOTE | 2016-09-07 09:09 | Hospitalist Progress Note ---
Hospitalist Progress Note Date of Service Sep 07, 2016. Subjective Pt evaluation today including: conversation w/ patient, conversation w/ family , physical exam, chart review, lab review Pain: none PO Intake: NPO Voiding: no voiding problems The patient was seen and examined this morning, sitting up in bedside chair with sons, Lukas and Brijesh are present at bedside. Pt reports slept well overnight. This morning she is nervous about procedure (biopsy of lymph). She is coughing a little more, bringing up white and bloody sputum. Pt reports blood appears dark, no bright red streaking. She feels weaker since being here. A NG tube was attempted to be placed 3x last night for nutrition but nursing was unable to get it placed. She reports it was painful in the back of her throat. Constitutional: No fever, No sweats Eyes: No diplopia ENT: + sore throat, + trouble swallowing Respiratory: + cough, + dyspnea on exertion, + sputum, + wheezing, No dyspnea at rest Cardiovascular: + chest pain Abdomen: No diarrhea, No nausea, No pain, No vomiting Musculoskeletal: No joint pain, No muscle pain, No swelling Female : No dysuria Neurologic: + weakness, No numbness/tingling Psychiatric: No anxiety, No insomnia Endo: + fatigue Skin: No itch, No rash Objective Vital Signs Date Time Temp Pulse Resp B/P Pulse Ox O2 Delivery O2 Flow Rate FiO2 09/07/16 08:42 125 116/71 09/07/16 07:40 36.4 127 20 184/107 96 09/07/16 00:01 Nasal Cannula 2.0 09/06/16 23:53 36.5 116 20 177/91 97 Nasal Cannula 2.0 09/06/16 19:27 36.6 120 18 151/79 96 Nasal Cannula 2.0 09/06/16 16:53 36.4 122 18 134/70 97 Nasal Cannula 2.0 09/06/16 16:00 116 180/100 09/06/16 16:00 Nasal Cannula 2.0 Physical Exam General Appearance: WD/WN, + pertinent finding (appears slightly anxious) Eyes: PERRL, EOMI ENT: pharynx normal, + pertinent finding (slightly hard of hearing) Neck: supple, thyroid normal Respiratory/Chest: chest non-tender, + pertinent finding (on 2 L via NC, + coarse breath sounds throughout with expiratory wheeze in the RUL and the RICHIE, diminished breath sounds at the right base ) Cardiovascular: no murmur, + tachycardia Abdomen: non tender, soft, + pertinent finding (hypoactive bowel sounds) Extremities: non-tender, no pedal edema, no calf tenderness Neurologic/Psychiatric: alert, normal mood/affect, oriented x 3 Skin: normal color, warm/dry Laboratory Results Last 24 Hours Test 09/07/16 05:15 09/07/16 07:46 White Blood Count 15.16 K/uL Red Blood Count 4.29 M/uL Hemoglobin 9.4 g/dL Hematocrit 30.0 % Mean Corpuscular Volume 69.9 fL Mean Corpuscular Hemoglobin 21.9 pg Mean Corpuscular Hemoglobin Concent 31.3 g/dl Platelet Count 298 K/uL Mean Platelet Volume 10.1 fL Neutrophils (%) (Auto) 85.1 % Lymphocytes (%) (Auto) 5.9 % Monocytes (%) (Auto) 6.1 % Eosinophils (%) (Auto) 1.1 % Basophils (%) (Auto) 0.3 % Neutrophils # (Auto) 12.92 K/uL Lymphocytes # (Auto) 0.90 K/uL Monocytes # (Auto) 0.92 K/uL Eosinophils # (Auto) 0.16 K/uL Basophils # (Auto) 0.04 K/uL RDW Standard Deviation 46.4 fL RDW Coefficient of Variation 18.5 % Immature Granulocyte % (Auto) 1.5 % Immature Granulocyte # (Auto) 0.22 K/uL Microcytosis PRESENT Echinocytes 1+ Sodium Level 147 mmol/L Potassium Level 3.9 mmol/L Chloride Level 116 mmol/L Carbon Dioxide Level 19 mmol/L Anion Gap 12.0 mmol/L Blood Urea Nitrogen 22 mg/dl Creatinine 0.80 mg/dl Est Creatinine Clear Calc Drug Dose 37.9 ml/min Estimated GFR () 77.4 Estimated GFR (Non- 66.8 BUN/Creatinine Ratio 27.3 Random Glucose 71 mg/dl Calcium Level 8.5 mg/dl Magnesium Level 2.1 mg/dl Bedside Glucose 78 mg/dl Assessment and Plan This is an 86-year-old female with past medical history of hypertension, osteoarthritis, 20 pound weight loss since March, dental implants placed in March, presenting to the ER after worsening weakness, fatigue and loss of appetite. New found bronchogenic mass - CT of the chest w/ RLL perihilar mass suspicious for bronchogenic carcinoma - measures 7 x 3.9 x 3.2 cm, there is also skeletal, hepatic, pulmonary and nodular masses present. There is pathological fracture involving T5 and T7. She has a right pleural effusion, and moderate emphysema. There is no PE. - Hyperchloremic and hypernatremic likely due to NSS which has been running continuously for maintence fluids since NPO. Will switch to 1/2 D5W +KCl to also correct potassium and glucose since were low again today. - Check repeat CXR, BCx with increased cough, check UA for completeness - will start on zosyn after bcx are drawn. - Thoracic med on board- appreciate recs -- Pt is s/p bronchoscopy on 09/04: bronchial washings sent for pathology - Consulted heme/onc - pt is a poor candidate for chemotherapy and radiation- Video swallow was completed and failed, pt is still strict NPO. - NGT was attempted to be placed last night by nursing however was unsuccessful x 3 attempts. Plan to hold off on nutrition until after biopsy of lymph node by Dr. Root today. - Palliative consulted- appreciate recs - PT/OT on board Shortness of breath on exertion - Noc ox test was done overnight and pt failed - will need O2 script prior to discharge. - Sats were 90% on room air earlier, now on 2 L, Pt with diminished breath sounds over the RLL still with cough productive of white sputum and some dark blood. - Repeat CXR today - CT chest does not describe infectious etiology or appearance. Afebrile, no fever, sweats or chills. Would have a low threshold to starting the patient on antibiotic like zosyn if she shows any of these sx w/ hx of dysphagia. Elevated Alk Phos - LFTs are trending downward slightly - likely secondary to hepatic metastasis as pt without any abdominal pain Hoarse Voice - possible laryngeal nerve involvement, pt feels this is unchanged and is one of her major complaints. - Seems to be hoarser today HTN Tachycardia - resolved - Continue daily amlodipine 5 mg - Can use prn hydralazine as needed for hypertension. DVT ppx: teds, scds, heparin CODE STATUS: FULL CODE Disposition: Transfer to [facility] due to tachycardia, likely anxiety but r/o infectious source today, Patient from home, lives with son, CM to assist with discharge planning, possible tx to tertiary care center - unknown.
--- NOTE | 2016-09-07 09:10 | Pulmonology Progress Note ---
Pulmonary Progress Note Date of Service Sep 07, 2016. Attending Dr. Dotson Subjective Patient noting cough with associated hemoptysis this am. Objective Patient is not tachypneic, not using accessory muscles of ventilation at this time or showing other signs of respiratory compromise. VS: stable on 2L nc RESP: decreased breath sounds RLL CARD: s1s2 rrr no m/r/g Modified Barium Swallow (09/05/16) Extensive tracheal aspiration with markedly impaired swallowing mechanism. BAL (09/04/2016) No microbiologic growth to date LUNG, RIGHT LOWER LOBE (CYTOLOGIC EVALUATION OF A BRONCHIAL WASH SPECIMEN): 1. MALIGNANT CELLS CONSISTENT WITH A NON-SMALL CELL CARCINOMA ARE SEEN. 2. THE CYTOLOGIC FEATURES ARE CONSISTENT WITH AN ADENOCARCINOMA. WBC: 15K Cl-: 116 Na+: 147 Anion Gap: 9.012.0 BUN/Cr: 22/0.8 ALK phos: 939 BUN/Cr Ratio: 20---27.3 ALB: 2.4 BAL: microbiology final results pending but no growth to date Assessment & Plan 86y/o female with lung mass and atypical/malignant cells on BAL and new clinical and serum studies suggesting acute infection: 1) Lung Mass: At this time it appears the patient has stage IV lung CA but definitive diagnosis/staging has not been made. I suggest we continue with the patient's planed supra-clavicular FNA to today for further evaluation. 2) GI: Patient with notable aspiration and a feeding tube was attempted but intervention was d/c secondary to pain. It doesn't appear that obstruction was the issue at this time but further work-up may be necessary in the future. At this time I believe placing any feeding tube should be on hold as her clinical course and labs appear to suggest pending infection/ possible sepsis. I have spoke to Dr. Zach mason GI and he agrees with the current plan and will f/u as needed. 3) ID: Patient clinical course and labs suggest pending infection/sepsis. I have spoken to the hospitalist team of my concerns as well as the patient and family. We will move the patient to telemetry, miller culture and start abx/Zosyn & Vancomycin at this time. If the ID work-up is negative then d/c of the abx is warranted. 4) Electrolytes: Hyperchloremic acidosis most likely from NS IV fluids. Suggest we move to D1/2NS at this time. Data Medications: Current Inpatient Medications Medications (Trade) Dose Ordered Sig/Holly Route Start Time Stop Time Status Last Admin Dose Admin Ioversol (Optiray 320) 125 ml UD PRN IV 09/03/16 10:00 09/07/16 09:59 Acetaminophen (Tylenol Tab) 650 mg Q4H PRN PO 09/03/16 13:00 10/03/16 12:59 Magnesium Hydroxide (Milk Of Magnesia Susp) 30 ml Q6H PRN PO 09/03/16 13:00 10/03/16 12:59 Polyethylene (Miralax Powder Packet) 17 gm DAILY PRN PO 09/03/16 13:00 10/03/16 12:59 Ondansetron HCl (Zofran Inj) 4 mg Q6H PRN IV 09/03/16 13:00 10/03/16 12:59 Amlodipine Besylate (Norvasc Tab) 5 mg DAILY PO 09/04/16 08:00 10/04/16 08:59 Multivitamins (Multivitamin Tab) 1 tab QAM PO 09/04/16 08:00 10/04/16 08:59 Heparin Sodium (Porcine) (Heparin Sq 5000 Unit/0.5ml) 5,000 unit Q12 SQ 09/03/16 21:00 10/03/16 20:59 09/06/16 09:33 5,000 UNIT Hydralazine HCl 20 mg 20 mg Q8 PRN IV. 09/04/16 08:15 10/04/16 08:14 09/07/16 07:42 20 MG Enalaprilat 0.625 mg/Dextrose 25.5 ml @ 100 mls/hr DAILY IV 09/08/16 08:00 10/08/16 07:59 UNV Dextrose/Sodium Chloride 1,000 ml @ 75 mls/hr [id number] IV 09/07/16 08:24 10/07/16 08:23 UNV Piperacillin Sod/ Tazobactam Sod/ Dextrose (Zosyn Iv/D5 100ml) 115 ml @ 200 mls/hr Q6 IV 09/07/16 12:00 09/14/16 11:59 UNV I & O: 24-Hour Column 09/07/16 08:00 Intake Total 2367 ml Output Total 800 ml Balance 1567 ml Vital Signs: Date Time Temp Pulse Resp B/P Pulse Ox O2 Delivery O2 Flow Rate FiO2 09/07/16 08:42 125 116/71 09/07/16 07:40 36.4 127 20 184/107 96 09/07/16 00:01 Nasal Cannula 2.0 09/06/16 23:53 36.5 116 20 177/91 97 Nasal Cannula 2.0 09/06/16 19:27 36.6 120 18 151/79 96 Nasal Cannula 2.0 09/06/16 16:53 36.4 122 18 134/70 97 Nasal Cannula 2.0 09/06/16 16:00 116 180/100 09/06/16 16:00 Nasal Cannula 2.0 Laboratory Results: Last 24 Hours Test 09/07/16 05:15 09/07/16 07:46 White Blood Count 15.16 K/uL Red Blood Count 4.29 M/uL Hemoglobin 9.4 g/dL Hematocrit 30.0 % Mean Corpuscular Volume 69.9 fL Mean Corpuscular Hemoglobin 21.9 pg Mean Corpuscular Hemoglobin Concent 31.3 g/dl Platelet Count 298 K/uL Mean Platelet Volume 10.1 fL Neutrophils (%) (Auto) 85.1 % Lymphocytes (%) (Auto) 5.9 % Monocytes (%) (Auto) 6.1 % Eosinophils (%) (Auto) 1.1 % Basophils (%) (Auto) 0.3 % Neutrophils # (Auto) 12.92 K/uL Lymphocytes # (Auto) 0.90 K/uL Monocytes # (Auto) 0.92 K/uL Eosinophils # (Auto) 0.16 K/uL Basophils # (Auto) 0.04 K/uL RDW Standard Deviation 46.4 fL RDW Coefficient of Variation 18.5 % Immature Granulocyte % (Auto) 1.5 % Immature Granulocyte # (Auto) 0.22 K/uL Microcytosis PRESENT Echinocytes 1+ Sodium Level 147 mmol/L Potassium Level 3.9 mmol/L Chloride Level 116 mmol/L Carbon Dioxide Level 19 mmol/L Anion Gap 12.0 mmol/L Blood Urea Nitrogen 22 mg/dl Creatinine 0.80 mg/dl Est Creatinine Clear Calc Drug Dose 37.9 ml/min Estimated GFR () 77.4 Estimated GFR (Non- 66.8 BUN/Creatinine Ratio 27.3 Random Glucose 71 mg/dl Calcium Level 8.5 mg/dl Magnesium Level 2.1 mg/dl Bedside Glucose 78 mg/dl
[2016-09-07] MEDS ORDERED: VANCOMYCIN CONSULT ACTIVE PRN (10:00)
[2016-09-07] MEDS ORDERED: PIPERACILL/TAZOBAC CONSULT ACTIVE PRN (10:00)
--- NOTE | 2016-09-07 10:19 | DIAGNOSTIC IMAGING REPORT ---
ULTRASOUND-GUIDED FINE-NEEDLE ASPIRATION LEFT SUPRACLAVICULAR LYMPH NODE CLINICAL HISTORY: Lung mass. Enlarged left supraclavicular lymph node. COMPARISON STUDY: Chest CT dated 09/03/2016. PROCEDURE: The risks, benefits, and alternatives to the procedure were discussed with the patient. Written informed consent was obtained. The patient was placed supine in ultrasound, and a 1.2 cm left cervical radicular lymph node was localized by ultrasound and selected for fine needle aspiration. The left supraclavicular region was prepped and draped in the usual sterile fashion. The no was aspirated under ultrasound guidance with 4 passes utilizing 25-gauge needles. The initial pass was reviewed by the pathologist and confirmed neoplasm. The material from the 3 additional passes was submitted to provide material for additional testing. The patient tolerated the procedure well and left the department in satisfactory condition. IMPRESSION: Completed fine-needle aspiration of a left supraclavicular lymph node as above. Electronically signed by: Case Root M.D. 09/07/2016 10:18 AM Dictated Date/Time: 09/07/2016 10:15 AM
[2016-09-07] MEDS ORDERED: PIPERACILL/TAZOBAC IV 3.375 GM in DEXTROSE 5% 100ML IV ONE (10:30)
--- NOTE | 2016-09-07 10:49 | Pharmacy Progress Note ---
Pharmacy Antibiotic Consult Date of Service: Sep 07, 2016. Pharmacy Dosing Scope Pharmacy is consulted to initiate Vancomycin + Zosyn IV dosing therapy, order appropriate labs and adjust drug dose/frequency. Subjective The patient is a 86 year old female admitted on Sep 03, 2016 at 13:00. Objective Height (Feet): 5 Height (Inches): 4.00 Weight (Kilograms): 47.600 Lab Results (24hrs): Laboratory Tests Test 09/07/16 05:15 BUN/Creatinine Ratio 27.3 Blood Urea Nitrogen 22 mg/dl Creatinine 0.80 mg/dl White Blood Count 15.16 K/uL Red Blood Count 4.29 M/uL Hemoglobin 9.4 g/dL Hematocrit 30.0 % Mean Corpuscular Volume 69.9 fL Mean Corpuscular Hemoglobin 21.9 pg Mean Corpuscular Hemoglobin Concent 31.3 g/dl Platelet Count 298 K/uL Mean Platelet Volume 10.1 fL Neutrophils (%) (Auto) 85.1 % Lymphocytes (%) (Auto) 5.9 % Monocytes (%) (Auto) 6.1 % Eosinophils (%) (Auto) 1.1 % Basophils (%) (Auto) 0.3 % Neutrophils # (Auto) 12.92 K/uL Lymphocytes # (Auto) 0.90 K/uL Monocytes # (Auto) 0.92 K/uL Eosinophils # (Auto) 0.16 K/uL Basophils # (Auto) 0.04 K/uL Micro Results: Item Value Date Time Blood Culture Received 09/07/16 0834 Blood Pending Blood Culture Received 09/07/16 0825 Blood Pending Fungal Smear - Final Resulted 09/04/16 0000 Bronchial Washings Right Lower Lobe Acid Fast Stain - Final Resulted 09/04/16 0000 Bronchial Washings Right Lower Lobe Gram Stain - Final Complete 09/04/16 0000 Bronchial Washings Right Lower Lobe Assessment & Plan ASSESSMENT: * 86yo female initiated on Vancomycin + Zosyn for possible ?sepsis? secondary to lung source * Scr elevated on admission but now improved and stabilizing around 0.8mg/dl. CrCl is ~ 38ml/min * Combination of vancomycin + zosyn can be nephrotoxic therefore will dose conservatively but adequately for severity of infection. Will check levels early in therapy (prior to steady state) to ensure safety and efficacy * Bronch washings & blood cultures cultures pending. Will use results to help guide abx therapy/deescalation * Vancomycin Calc PK parameters Ke(est) ~ 0.033h-1 T1/2(est) ~ 21 hrs Vd ~ 0.65L/kg PLAN: Vancomycin: * Loading dose: Vancomycin 1,200mg (25mg/kg) IV X 1 dose then: * Vancomycin 750mg (~15mg/kg) IV every 24 hours. * Check vancomycin trough level 09/09/16 @ 1200 (prior to 2nd maintenance dose) * Adjust doing to maintain goal trough level estimate: between 15 - 20 mcg/mL based on IDSA recommendations for complicated infections and for adequate pulmonary penetration * Of note, this level will be drawn prior to steady state and further vanco accumulation/increased trough level may occur with repeated dosing Zosyn: * Dosing per Piperacillin/Tazobactam Extended Infusion: * 3.375 grams IV bolus, 3.375 grams CI IV every 8 hours for est CrCL > 20mL/ min. * 3.375 grams IV bolus, 3.375 grams CI IV every 12 hours for est CrCL 20mL/min or below Pharmacy will continue to follow and will adjust dose/frequency as necessary. Thank you
[2016-09-07] MEDS ORDERED: VANCOMYCIN INJ 1,200 MG in SODIUM CHLORIDE 0.9% 250ML 250 ML IV SCH (11:00)
[2016-09-07] MEDS: D5W AND 1/2NSS 1,000 ML IV SCH ×2 (11:04→20:45)
--- NOTE | 2016-09-07 11:46 | DIAGNOSTIC IMAGING REPORT ---
SINGLE VIEW CHEST CLINICAL HISTORY: Lung mass. Weight loss. FINDINGS: An AP, portable, upright chest radiograph is compared to chest x-ray and chest CT dated 08/31/2016. The examination is degraded by portable technique and patient rotation. The the heart is mildly enlarged and there is atherosclerotic calcification of the thoracic aorta. There is prominence of the pulmonary vasculature. A large right perihilar densities consistent with a mass lesion when correlated with the recent chest CT. Advanced emphysema with diffuse interstitial thickening and nodularity is similar to previous. There are layering pleural effusions with bibasilar consolidation. The pleural effusions have increased in size from previous. No pneumothorax is seen. The skeletal structures are osteopenic. The bony thorax is grossly intact. Degenerative change is noted in the left humeral head. IMPRESSION: 1. There are bilateral pleural effusions which have significantly increased in size from 08/31/2016. 2. There is associated bibasilar consolidation, likely representing atelectasis. Superimposed pneumonia would be impossible to exclude and clinical correlation will be required. 3. Cardiomegaly with prominence of the pulmonary vessels. Cortical clinically from some mild congestive failure. 4. Advanced emphysema. 5. Right perihilar lung mass with diffuse interstitial thickening and nodularity. This is similar to previous. Electronically signed by: Case Root M.D. 09/07/2016 11:45 AM Dictated Date/Time: 09/07/2016 11:41 AM
[2016-09-07] MEDS: PIPERACILL/TAZOBAC IV 3.375 GM in DEXTROSE 5% 100ML 100 ML IV SCH ×2 (17:25→23:45)
--- NOTE | 2016-09-07 17:30 | Hematology/Oncology Prog Note ---
Hematology/Onc Progress Note Date of Service Sep 07, 2016. Diagnoses Likely metastatic lung cancer Dysphagia and swallowing dysfunction Medications Medications Administered Medications (Trade) Dose Ordered Sig/Holly Route Start Time Stop Time Status Last Admin Dose Admin Sodium Chloride (Nss 1000ml) 1,000 ml @ 999 mls/hr Q1H1M STAT IV 09/03/16 09:39 09/03/16 10:39 DC 09/03/16 09:39 999 MLS/HR Albuterol/ Ipratropium (Duoneb) 12 ml ONE ONCE INH 09/03/16 10:00 09/03/16 10:01 DC 09/03/16 10:41 12 ML Hydralazine HCl (HydrALAZINE INJ) 10 mg Q4 PRN IV. 09/03/16 14:00 09/06/16 10:31 DC 09/06/16 03:55 10 MG Heparin Sodium (Porcine) 5000 unit 5,000 unit Q12 SQ 09/03/16 21:00 10/03/16 20:59 09/06/16 09:33 5,000 UNIT Sodium Chloride 1,000 ml @ 100 mls/hr Q10H IV 09/03/16 16:15 09/05/16 10:44 DC 09/04/16 22:35 100 MLS/HR Dextrose (D5W 1000ml) 1,000 ml @ 50 mls/hr Q20H IV 09/03/16 19:30 09/04/16 16:54 DC 09/03/16 20:53 50 MLS/HR Zolpidem Tartrate (Ambien Tab) 5 mg STK-MED ONCE .ROUTE 09/03/16 21:41 09/03/16 21:42 DC 09/03/16 21:37 5 MG Hydralazine HCl 20 mg 20 mg Q8 PRN IV. 09/04/16 08:15 10/04/16 08:14 09/07/16 07:42 20 MG Potassium Chloride/Sodium Chloride 1,000 ml @ 100 mls/hr Q10H IV 09/05/16 11:15 09/07/16 08:24 DC 09/07/16 03:04 100 MLS/HR Dextrose/Sodium Chloride 1,000 ml @ 75 mls/hr [id number] IV 09/07/16 08:24 10/07/16 08:23 09/07/16 11:04 75 MLS/HR Piperacillin Sod/ Tazobactam Sod 3.375 gm/Dextrose 115 ml @ 230 mls/hr NOW ONCE IV 09/07/16 10:30 09/07/16 10:59 DC 09/07/16 11:03 230 MLS/HR Vancomycin HCl/ Sodium Chloride (Vancomycin Inj/ Nss 250ml) 274 ml @ 125 mls/hr TODAY@1100 IV 09/07/16 11:00 09/07/16 15:01 DC 09/07/16 12:24 125 MLS/HR Subjective Ms. Rapp is comfortable in bed. She denies any pain or sensation of hunger. there was an attempt to place a Dobhoff tube yesterday that was unsuccessful, due to coiling and discomfort in her oropharynx. Review of Systems: Constitutional: + fatigue, No fever Eyes: No worsening of vision ENT: + trouble swallowing Respiratory: No cough, No shortness of breath Cardiovascular: No chest pain Abdomen: No nausea, No pain, No vomiting Musculoskeletal: No joint pain, No muscle pain Heme: No abnormal bleeding/bruising Vital Signs Vital Signs Past 12 Hours Date Time Temp Pulse Resp B/P Pulse Ox O2 Delivery O2 Flow Rate FiO2 09/07/16 15:52 36.3 119 18 178/106 96 Nasal Cannula 2.0 09/07/16 11:48 36.4 122 18 150/90 97 2.0 09/07/16 10:30 36.4 125 20 96 2.0 09/07/16 08:42 125 116/71 09/07/16 08:00 Nasal Cannula 2.0 09/07/16 07:40 36.4 127 20 184/107 96 Physical Exam Constitutional: General Apperance: too thin Level of Distress: chronically ill (frail appearing and weak) Psychiatric: Mental Status: active & alert Orientation: oriented except where noted Lungs: Respiratory Effort: no dyspnea Auscuitation: CTA except as noted Cardiovascular: Heart Auscultation: RRR Abdomen: Inspection & Palpation: soft, no tenderness, guarding & rebound Extremities: no edema Assessment & Plan Ms. Rapp finds herself in a profoundly difficult position. Her pathology is consistent with a lung adenocarcinoma. The standard treatment for stage IV lung adenocarcinomas depends upon molecular markers like EGFR, ALK, ROS1, and PD-L1. However, outside of these targeted therapies, the standard is chemotherapy. She repeatedly and clearly stated she is uninterested in chemo. Thus, the only possibility of treating her cancer would be if she happened to harbor one of these other markers. I would estimate the likelihood of that to be around 25-30 % at best. Even if she did have an EGFR mutation or ALK/ROS1 rearrangement, the treatment would be pills that might not be able to be administered via a feeding tube and certainly would not be options without enteral access. Thus, the likelihood that we will be able to effectively treat her cancer, should she even become a candidate for therapy at all, is low. However, before we can even consider these issues, she would need reliable enteral access. A Dobhoff NG tube placement was unsuccessful and there is not another good option here to place one. Placing a conventional PEG tube would require sedation. Unfortunately, she has a large amount of redundant pharyngeal tissue that led to airway collapse during her bronchoscopy. Thus, any further invasive procedure would require intubation. The risks of such an intervention, and particularly the concern that she may never come off a ventilator, almost certainly outweighs the modest theoretical benefit of placing a PEG tube. I reviewed her situation with a number of proceduralists, including pulmonology, GI, and radiology, and all of them agreed with this general assessment. In light of these issues, my recommendation to her would be hospice care. After much discussion and deliberation, the patient and her sons agreed to this plan. However, once she is established in hospice care, she may consider seeking a second opinion as an outpatient at a tertiary care center, like [facility]. I provided my contact information and told her to have them reach out to me to discuss her situation, if she chooses to pursue this option. By the end of our conversation, everyone appeared to agree with this plan and seemed satisfied.
[2016-09-08 00:28] VITALS: BP 152/82; PULSE 117
[2016-09-08 07:34] VITALS: BP 166/92; PULSE 115; TEMP 36.6; O2SAT 93
[2016-09-08] MEDS: MULTIVITAMIN TAB PO SCH (07:35)
[2016-09-08] MEDS: AMLODIPINE BESYLATE 5 MG TAB PO SCH (07:35)
[2016-09-08] MEDS: PIPERACILL/TAZOBAC IV 3.375 GM in DEXTROSE 5% 100ML 100 ML IV SCH ×3 (07:57→23:58)
[2016-09-08] MEDS: HEPARIN SOD 5000 UNIT/0.5 ML CARP SQ SCH ×2 (07:58→20:54)
[2016-09-08] MEDS ORDERED: ENALAPRILAT IV 0.625 MG in DEXTROSE 5% 25ML 25 ML IV SCH (08:00)
--- NOTE | 2016-09-08 08:06 | Progress Note ---
Subjective Date of Service: Sep 08, 2016. Subjective Pt evaluation today including: conversation w/ patient, physical exam, chart review, lab review, review of studies, review of inpatient medication list tired, dry mouth, she says "I don't care of aspiration and just want to eat and drink," no pain, BG is 130 in finger stick Problem List Medical Problems: (1) Lung mass Status: Acute Review of Systems Constitutional: + fatigue, + weakness, No chills, No fever, No problem reported , No sweats, No weight loss Eyes: No diplopia, No discharge, No eye pain, No redness, No worsening of vision ENT: No dental problems, No hearing loss, No nasal symptoms, No sore throat, No tinnitus, No trouble swallowing, No unusual epistaxis Respiratory: + cough, + dyspnea at rest (mild), + dyspnea on exertion, + shortness of breath, + wheezing, No hemoptysis, No sputum Cardiac: No PND, No chest pain, No claudication, No edema, No orthopnea, No palpitations Abdomen: No constipation, No diarrhea, No nausea, No pain, No vomiting Musculoskeletal: No calf pain, No joint pain, No muscle pain, No swelling Female : No abnormal vaginal bleeding, No dysuria, No hematuria, No incontinence, No urinary frequency, No vaginal discharge Neurologic: No balance problems, No memory loss, No numbness/tingling, No paralysis, No vertigo, No weakness Psychiatric: No anhedonism, No anxiety, No depression symptoms, No insomnia, No substance abuse Heme: No abnormal bleeding/bruising, No clotting problems, No night sweats, No swollen lymph nodes Endo: No excessive thirst, No excessive urination, No fatigue Skin: No bleeding, No color change, No itch, No new/changing skin lesions, No rash Objective Vital Signs Date Time Temp Pulse Resp B/P Pulse Ox O2 Delivery O2 Flow Rate FiO2 09/08/16 07:34 36.6 115 16 166/92 93 Room Air 09/08/16 00:28 117 152/82 09/07/16 23:45 Nasal Cannula 2.0 09/07/16 23:03 36.5 112 18 196/95 96 Nasal Cannula 2.0 09/07/16 22:32 36.5 112 196/95 96 Nasal Cannula 2.0 09/07/16 19:17 36.6 118 18 161/85 96 Nasal Cannula 2.0 09/07/16 18:15 96 Nasal Cannula 2.0 09/07/16 16:00 Nasal Cannula 2.0 09/07/16 15:52 36.3 119 18 178/106 96 Nasal Cannula 2.0 09/07/16 11:48 36.4 122 18 150/90 97 2.0 09/07/16 10:30 36.4 125 20 96 2.0 09/07/16 08:42 125 116/71 Physical Exam General Appearance: WD/WN, no apparent distress, + cachetic, + thin Eyes: normal inspection, PERRL, EOMI, sclerae normal ENT: normal ENT inspection, hearing grossly normal, pharynx normal Neck: supple, no adenopathy, thyroid normal, no JVD, no carotid bruits, trachea midline Respiratory/Chest: chest non-tender, no respiratory distress, no accessory muscle use, + decreased breath sounds, + wheezing Cardiovascular: regular rate, rhythm, no edema, no gallop, no JVD, no murmur Abdomen: normal bowel sounds, non tender, soft, no organomegaly, no pulsatile mass Extremities: normal range of motion, non-tender, normal inspection, no pedal edema, no calf tenderness, normal capillary refill, pelvis stable Neurologic/Psychiatric: center medical and lab director II-XII nml as tested, no motor/sensory deficits, alert, normal mood/affect, oriented x 3 Skin: normal color, warm/dry, no rash Lymphatic: no adenopathy Laboratory Results Last 24 Hours Test 09/08/16 04:44 09/08/16 07:50 Bedside Glucose 130 mg/dl Assessment and Plan 86-year-old female with admitted with worsening weakness, fatigue and loss of appetite. New found bronchogenic mass, which was confirmed by pathology is adenocarcinoma , stage IV lung cancer, condition continue declining - CT of the chest w/ RLL perihilar mass suspicious for bronchogenic carcinoma - measures 7 x 3.9 x 3.2 cm, there is also skeletal, hepatic, pulmonary and nodular masses present. There is pathological fracture involving T5 and T7. She has a right pleural effusion, and moderate emphysema. There is no PE. - Hyperchloremic and hypernatremi - Thoracic med on board- appreciate recs -- Pt is s/p bronchoscopy on 09/04: bronchial washings sent for pathology - Consulted heme/onc - pt is a poor candidate for chemotherapy and radiation- Video swallow was completed and failed, NPO. - NGT was attempted to be placed last night by nursing however was unsuccessful x 3 attempts. - Palliative consulted- appreciate recs Hoarse Voice - possible laryngeal nerve involvement, pt feels this is unchanged and is one of her major complaints. Accelerated HTN Mild tachycardia Tachycardia - Can use prn hydralazine as needed for hypertension. 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, Has extensive discussion with [employer] professor, oncologist and has been back and forth with patient and family, has discussed about the options of care, such as nutrition support, risk and benefit of tube feeding, options and benefit of chemotherapy or targeted molecular chemotherapy, pn 09/07/2016 pm, oncologist talked to patient and family they decide home hospice care, i confirmed this with them with present of RN, has requested to notified hospice case manager, to setup home hospice care gar[place], they want ivf and BP med continue when at home hospice care Rx of [place] o2 and and hospital bed gave to RN for today I discontinued One Touch checking blood glucose I increased Vasotec every 12 for better blood pressure control, family seems more concerned about blood pressure issue, we'll discuss with them more above this ok ice chip, and sponge with water for mouth moisture, with risks of aspiration DC one touch will emphasized with patient and family , the goal of care is comfort methods Continued [facility] stay due to: multiple IV medications needed Discharge planning: home, home with Hospice
[2016-09-08 08:13] LABS: BASO % 0.2 %; BASO ABS # 0.03 K/uL (0-0.2); EOS % 1.1 %; HEMATOCRIT 32.3 % (37-47); IG% 2.2 %; LYMPH % 5.6 %; LYMPH ABS # 1.02 K/uL (1.2-3.4); MEAN CELL VOLUME 68.9 fL (80-100); MEAN CORPUSCULAR HGB CONC 31.9 g/dl (32-36); MEAN PLATELET VOLUME 9.8 fL (7.4-10.4); NEUT % 84.9 %; PLATELET COUNT 291 K/uL (130-400); RED BLOOD COUNT 4.69 M/uL (4.2-5.4); WHITE BLOOD COUNT 18.12 K/uL (4.8-10.8)
[2016-09-08 08:39] LABS: ANISOCYTOSIS PRESENT; COMPLETE YES; ECHINOCYTES 1+; MICROCYTOSIS PRESENT
[2016-09-08] MEDS ORDERED: ENALAPRILAT IV 0.625 MG in DEXTROSE 5% 25ML 25 ML IV PRN (09:00)
[2016-09-08] MEDS ORDERED: ENALAPRILAT IV 1.25 MG in DEXTROSE 5% 25ML 25 ML IV PRN (09:00)
[2016-09-08 09:17] LABS: BUN/CREATININE RATIO 19.9 (10-20); CALCIUM 8.7 mg/dl (8.5-10.1); CREATININE 0.92 mg/dl (0.60-1.20); MAGNESIUM 1.9 mg/dl (1.8-2.4); PHOSPHORUS 2.3 mg/dl (2.5-4.9); POTASSIUM 2.8 mmol/L (3.5-5.1)
[2016-09-08 10:38] VITALS: O2SAT 93
[2016-09-08] MEDS ORDERED: NURSING VERBAL MED ORDER ONE ×2 (10:45→18:00)
[2016-09-08] MEDS: POTASSIUM CHLR 10MEQ / WTR IV SCH ×4 (12:09→15:52)
[2016-09-08] MEDS: VANCOMYCIN INJ 750 MG in SODIUM CHLORIDE 0.9% 250ML 250 ML IV SCH (12:17)
[2016-09-08 15:21] VITALS: BP 168/95; PULSE 106; TEMP 36.6; O2SAT 93
[2016-09-08] MEDS ORDERED: POTASSIUM PHOSPHATE INJ 30 MMOL in SODIUM CHLORIDE 0.9% 500ML 500 ML IV SCH (15:45)
[2016-09-08] MEDS ORDERED: CONSULT PHARMACY STA (15:52)
[2016-09-08] MEDS: D5W AND 1/2NSS 1,000 ML IV SCH ×2 (15:52→23:59)
[2016-09-08] MEDS ORDERED: BISACODYL 10 MG SUPP PR PRN (18:15)
[2016-09-08 23:14] VITALS: BP 185/108; PULSE 112; TEMP 36.4; O2SAT 92
[2016-09-08] MEDS: HydrALAZINE HCL 20 MG/ML VIAL IV. PRN (23:18)
[2016-09-09] VITALS (8 sets, daily range): BP systolic 118–180; BP diastolic 56–109; PULSE 66–118; TEMP 36.1–36.5; O2SAT 91–95
[2016-09-09 00:25] LABS: POTASSIUM 3.7 mmol/L (3.5-5.1)
[2016-09-09 00:28] LABS: MAGNESIUM 1.7 mg/dl (1.8-2.4); PHOSPHORUS 4.9 mg/dl (2.5-4.9)
[2016-09-09] MEDS: MULTIVITAMIN TAB PO SCH (07:18)
[2016-09-09] MEDS: AMLODIPINE BESYLATE 5 MG TAB PO SCH (07:18)
[2016-09-09 07:27] LABS: BASO % 0.1 %; BASO ABS # 0.02 K/uL (0-0.2); EOS % 0.4 %; HEMATOCRIT 30.4 % (37-47); IG% 3.1 %; LYMPH % 6.1 %; LYMPH ABS # 1.27 K/uL (1.2-3.4); MEAN CELL VOLUME 68.3 fL (80-100); MEAN CORPUSCULAR HEMOGLOBIN 21.6 pg (25-34); MEAN CORPUSCULAR HGB CONC 31.6 g/dl (32-36); MEAN PLATELET VOLUME 10.2 fL (7.4-10.4); MONO % 6.2 %; NEUT % 84.1 %; PLATELET COUNT 261 K/uL (130-400); RED BLOOD COUNT 4.45 M/uL (4.2-5.4); WHITE BLOOD COUNT 20.81 K/uL (4.8-10.8)
[2016-09-09] MEDS: HydrALAZINE HCL 20 MG/ML VIAL IV. PRN (07:39)
[2016-09-09] MEDS: PIPERACILL/TAZOBAC IV 3.375 GM in DEXTROSE 5% 100ML 100 ML IV SCH ×3 (07:39→23:55)
[2016-09-09] MEDS: HEPARIN SOD 5000 UNIT/0.5 ML CARP SQ SCH ×2 (07:40→20:30)
[2016-09-09 07:58] LABS: BUN/CREATININE RATIO 18.3 (10-20); CREATININE 0.87 mg/dl (0.60-1.20); MAGNESIUM 1.7 mg/dl (1.8-2.4); POTASSIUM 3.1 mmol/L (3.5-5.1)
[2016-09-09 08:12] LABS: CALCIUM 7.4 mg/dl (8.5-10.1)
[2016-09-09 08:14] LABS: ANISOCYTOSIS PRESENT; COMPLETE YES; ECHINOCYTES 1+; MICROCYTOSIS PRESENT
[2016-09-09] MEDS ORDERED: ENALAPRILAT IV 1.25 MG in DEXTROSE 5% 25ML 25 ML IV PRN (09:00)
[2016-09-09] MEDS: MAGNESIUM SULFATE 1GM / D5W 1 GM in PREMIXED IN D5W 100 ML IV SCH ×2 (10:35→12:15)
[2016-09-09] MEDS ORDERED: SODIUM CHLORIDE 0.9% IV ONE (11:30)
[2016-09-09] MEDS ORDERED: POTASSIUM ACETATE IV ONE (11:30)
[2016-09-09] MEDS ORDERED: VANCOMYCIN TROUGH SCH (11:30)
--- NOTE | 2016-09-09 11:40 | Progress Note ---
Subjective Date of Service: Sep 09, 2016. Subjective Pt evaluation today including: conversation w/ patient, conversation w/ family , physical exam, chart review, lab review, review of studies, conversation w/ salon sales consultant, review of inpatient medication list Sitting up in chair, smiling and talk with hoarse worse, which is not new, some cough, no sputum, mild labored breathing when talking, no other complaint, no pain Has bowel movement after had suppository yesterday Problem List Medical Problems: (1) Lung mass Status: Acute Review of Systems Constitutional: + fatigue, + weakness, No chills, No fever Eyes: No diplopia, No discharge, No eye pain, No problem reported, No redness, No see HPI, No worsening of vision ENT: + see HPI, No dental problems, No hearing loss, No nasal symptoms, No problem reported, No sore throat, No tinnitus, No trouble swallowing, No unusual epistaxis Respiratory: + cough, + shortness of breath Cardiac: No PND, No chest pain, No claudication, No edema, No orthopnea, No palpitations, No problem reported, No see HPI Abdomen: No GI bleeding, No constipation, No diarrhea, No nausea, No pain, No problem reported, No see HPI, No vomiting Musculoskeletal: No calf pain, No joint pain, No muscle pain, No problem reported, No see HPI, No swelling Female : No abnormal vaginal bleeding, No dysuria, No hematuria, No incontinence, No problem reported, No see HPI, No urinary frequency, No vaginal discharge Neurologic: No balance problems, No memory loss, No numbness/tingling, No paralysis, No problem reported, No see HPI, No vertigo, No weakness Psychiatric: No anhedonism, No anxiety, No depression symptoms, No insomnia, No problem reported, No see HPI, No substance abuse Heme: No abnormal bleeding/bruising, No clotting problems, No night sweats, No problem reported, No see HPI, No swollen lymph nodes Endo: No excessive thirst, No excessive urination, No fatigue, No problem reported, No see HPI Skin: No bleeding, No color change, No itch, No new/changing skin lesions, No problem reported, No rash, No see HPI Objective Vital Signs Date Time Temp Pulse Resp B/P Pulse Ox O2 Delivery O2 Flow Rate FiO2 09/09/16 11:01 36.1 118 28 91 Nasal Cannula 09/09/16 10:08 91 Nasal Cannula 2.0 09/09/16 08:46 118 118/56 09/09/16 07:33 36.1 118 28 180/109 91 Nasal Cannula 2.0 169/103 09/09/16 00:02 157/84 09/08/16 23:20 Nasal Cannula 2.0 09/08/16 23:14 36.4 112 22 185/108 92 Nasal Cannula 2.0 09/08/16 16:00 Nasal Cannula 2.0 09/08/16 15:21 36.6 106 16 168/95 93 Nasal Cannula 2.0 09/08/16 11:41 Room Air Physical Exam General Appearance: WD/WN, no apparent distress, + cachetic, + thin, + pertinent finding ( frail, however patient make up herself and combing hair) Eyes: normal inspection, PERRL, EOMI, sclerae normal ENT: normal ENT inspection, hearing grossly normal, pharynx normal Neck: supple, no adenopathy, thyroid normal, no JVD, no carotid bruits, trachea midline Respiratory/Chest: chest non-tender, normal breath sounds, no respiratory distress, no accessory muscle use, + decreased breath sounds Cardiovascular: regular rate, rhythm, no edema, no gallop, no JVD, no murmur Abdomen: normal bowel sounds, non tender, soft, no organomegaly, no pulsatile mass Extremities: normal range of motion, non-tender, normal inspection, no pedal edema, no calf tenderness, normal capillary refill, pelvis stable Neurologic/Psychiatric: global human resources director II-XII nml as tested, no motor/sensory deficits, alert, normal mood/affect, oriented x 3 Skin: normal color, warm/dry, no rash Lymphatic: no adenopathy Laboratory Results Last 24 Hours Test 09/08/16 23:59 09/09/16 07:10 Potassium Level 3.7 mmol/L 3.1 mmol/L Phosphorus Level 4.9 mg/dl 3.3 mg/dl Magnesium Level 1.7 mg/dl 1.7 mg/dl White Blood Count 20.81 K/uL Red Blood Count 4.45 M/uL Hemoglobin 9.6 g/dL Hematocrit 30.4 % Mean Corpuscular Volume 68.3 fL Mean Corpuscular Hemoglobin 21.6 pg Mean Corpuscular Hemoglobin Concent 31.6 g/dl Platelet Count 261 K/uL Mean Platelet Volume 10.2 fL Neutrophils (%) (Auto) 84.1 % Lymphocytes (%) (Auto) 6.1 % Monocytes (%) (Auto) 6.2 % Eosinophils (%) (Auto) 0.4 % Basophils (%) (Auto) 0.1 % Neutrophils # (Auto) 17.49 K/uL Lymphocytes # (Auto) 1.27 K/uL Monocytes # (Auto) 1.30 K/uL Eosinophils # (Auto) 0.09 K/uL Basophils # (Auto) 0.02 K/uL RDW Standard Deviation 46.5 fL RDW Coefficient of Variation 18.7 % Immature Granulocyte % (Auto) 3.1 % Immature Granulocyte # (Auto) 0.64 K/uL Anisocytosis PRESENT Microcytosis PRESENT Echinocytes 1+ Sodium Level 143 mmol/L Chloride Level 110 mmol/L Carbon Dioxide Level 23 mmol/L Anion Gap 10.0 mmol/L Blood Urea Nitrogen 16 mg/dl Creatinine 0.87 mg/dl Est Creatinine Clear Calc Drug Dose 34.9 ml/min Estimated GFR () 69.9 Estimated GFR (Non- 60.3 BUN/Creatinine Ratio 18.3 Random Glucose 132 mg/dl Calcium Level 7.4 mg/dl Assessment and Plan 86-year-old female with admitted with worsening weakness, fatigue and loss of appetite. New found bronchogenic mass, which was confirmed by pathology is adenocarcinoma , stage IV lung cancer, condition continue declining - CT of the chest w/ RLL perihilar mass suspicious for bronchogenic carcinoma - measures 7 x 3.9 x 3.2 cm, there is also skeletal, hepatic, pulmonary and nodular masses present. -On 09/07/2016 patient had supra-clavicular FNA, pathology report is pending There is pathological fracture involving T5 and T7. She has a right pleural effusion, and moderate emphysema. There is no PE. - Hyperchloremic and hypernatremi - Trimmer Sorter and oncologist on the case Pt is s/p bronchoscopy on 09/04: bronchial washings sent for pathology, which reported adenocarcinoma, - Consulted heme/onc - pt is a poor candidate for chemotherapy and radiation - Video swallow was completed and failed, NPO. - NGT was attempted to be placed last night by nursing however was unsuccessful x 3 attempts. - Palliative consulted- appreciate recs Hoarse Voice - possible laryngeal nerve involvement, pt feels this is unchanged and is one of her major complaints. Accelerated HTN Mild tachycardia Tachycardia - Can use prn hydralazine as needed for hypertension. 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, Has extensive discussion with mask designer, oncologist and has been back and forth with patient and family, has discussed about the options of care, such as nutrition support, risk and benefit of tube feeding, options and benefit of chemotherapy or targeted molecular chemotherapy, The care goal for the patient has been changed several times , on 09/07/2016 pm, oncologist talked to patient and family they decide home hospice care, i confirmed this with them with present of RN, had requested to notified caser in, to setup home hospice care [facility], they want ivf and BP med continue when at home hospice care Rx of NC o2 and and hospital bed gave to RN On 09/08/2016 SW called and said pt and fam reported that to go to [facility] [address] is their primary goal, and wants to be transfer, d/w risks and benefits of transferring, consent signed\, called to [facility], talked to hospitalist Dr. Melchor, , protocol Later in the afternoon from Dr. Scott , who accepted pt to [facility], on saturday need to call to transferring center ([phone]) to initial transferring on Saturday updated to pt and fam, patient's condition is stable today Was planning to have PICC for nutrition support per family request for TPN, they wanted to take on the risk of infections and spreading faster of the cancer cells. Not able to insert.PICC per iv team Discussed with pharmacist , not able to have PICC line AND give TPN, , but okay to give nutrition support through peripheral line , therefore PTN will be started today Continued [facility] stay due to: multiple IV medications needed Discharge planning: home, home with Hospice
[2016-09-09] MEDS ORDERED: HydrALAZINE HCL 20 MG/ML VIAL IV. PRN (12:00)
[2016-09-09] MEDS: VANCOMYCIN INJ 750 MG in SODIUM CHLORIDE 0.9% 250ML 250 ML IV SCH (12:15)
--- NOTE | 2016-09-09 12:50 | Pharmacy Progress Note ---
Parenteral Nutrition Consult Date of Service Sep 09, 2016. Scope Pharmacy has been consulted to manage parenteral nutrition orders and order appropriate labs. As part of the Nutrition Support Team guidelines, pharmacy will work in conjunction with dietary when determining the patients caloric needs. Subjective The patient is a 86 year old female admitted on Sep 03, 2016 at 13:00 for Fatigue, Tachycardia, Weight Loss. Patient is to receive parenteral nutrition for prolonged NPO status 2nd aspiration risk. Pertinent PMH: stage IV lung cancer, likely hospice on discharge Objective Height (Feet): 5 Height (Inches): 4.00 Weight (Kilograms): 47.600 Diet: NPO Except Ice Chips/Sips Intake & Output (Last 72 Hr): 09/07/16 09/08/16 09/09/16 08:00 08:00 08:00 Intake Total 2367 ml 1835 ml 2970 ml Output Total 800 ml 200 ml 1075 ml Balance 1567 ml 1635 ml 1895 ml Laboratory Data (Last 24 Hr): Test 09/08/16 23:59 09/09/16 07:10 Magnesium Level 1.7 mg/dl (1.8-2.4) 1.7 mg/dl (1.8-2.4) Phosphorus Level 4.9 mg/dl (2.5-4.9) 3.3 mg/dl (2.5-4.9) Potassium Level 3.7 mmol/L (3.5-5.1) 3.1 mmol/L (3.5-5.1) Blood Urea Nitrogen 16 mg/dl (7-18) Calcium Level 7.4 mg/dl (8.5-10.1) Carbon Dioxide Level 23 mmol/L (21-32) Chloride Level 110 mmol/L (98-107) Creatinine 0.87 mg/dl (0.60-1.20) Random Glucose 132 mg/dl (70-99) Sodium Level 143 mmol/L (136-145) Nutrition Assessment Please refer to the Notes section of the EMR for the most recent supervisor billposting note. Assessment * Plan was to start TPN today, but pt is not a candidate for PICC per RN. OK to start PPN. * Volume per Dr. Frias 1800 mL. Aware will not be able to give significant amount of calories with this restriction * Will maximize lipids to help with caloric needs, provide as much amino acids as possible, then max out to 600 mOsm/L with dextrose. Spoke roscoe Diehl (supervisor billposting) who is aware. * Plan to discharge home on hospice * Electrolyte repletion * Potassium: K 84 mEq administered yesterday (KCl 40 mEq and KPhos 30 mmol) increased K from 2.8 to 3.1 mmol/L (ignoring 0000 K level as this was drawn too close to KPhos admin therefore falsely elevated). Will give additional 40 mEq KAc this AM for K of 3.1 mmol/L prior to starting PPN * Magnesium: down to 1.7 mg/dL this AM. Will give 2g as K will not respond until mag appropriately repleted * Phosphorus: Phos increased from 2.3 to 3.3 mg/dL (ignoring 0000 Phos as this was drawn too close to KPhos admin and therefore falsely elevated). No need to replete further prior to PPN administration - Plan For day 1 of PN administration, the following will be ordered: Macronutrients Amino acids 50 grams/day Dextrose 90 grams/day Lipids 50 grams/day Micronutrients Potassium phosphate 21 mMol Magnesium sulfate 8.12 mEq Multivitamins 10 mL Trace Elements 10 mL Total volume 1800 mL to be infused over 24 hrs will provide 1006 kcal/day Final osmolarity 600 mOsm/L (maximum for PPN is 600 mOsm/L) Labs to be ordered per PN order protocol Pharmacy will follow and adjust parenteral nutrition orders on a daily basis. Thank you.
--- NOTE | 2016-09-09 15:06 | Pharmacy Progress Note ---
Pharmacy Antibiotic Prog Note Date of Service Sep 09, 2016. Subjective The patient is currently receiving vancomycin 750 mg iv q 24 hrs and zosyn 3.375 gm iv q 8 hrs The patient is currently on day #3 of IV therapy. Objective Height (Feet): 5 Height (Inches): 4.00 Weight (Kilograms): 47.600 Lab Results (24hrs): Laboratory Tests Test 09/09/16 07:10 BUN/Creatinine Ratio 18.3 Blood Urea Nitrogen 16 mg/dl Creatinine 0.87 mg/dl White Blood Count 20.81 K/uL Red Blood Count 4.45 M/uL Hemoglobin 9.6 g/dL Hematocrit 30.4 % Mean Corpuscular Volume 68.3 fL Mean Corpuscular Hemoglobin 21.6 pg Mean Corpuscular Hemoglobin Concent 31.6 g/dl Platelet Count 261 K/uL Mean Platelet Volume 10.2 fL Neutrophils (%) (Auto) 84.1 % Lymphocytes (%) (Auto) 6.1 % Monocytes (%) (Auto) 6.2 % Eosinophils (%) (Auto) 0.4 % Basophils (%) (Auto) 0.1 % Neutrophils # (Auto) 17.49 K/uL Lymphocytes # (Auto) 1.27 K/uL Monocytes # (Auto) 1.30 K/uL Eosinophils # (Auto) 0.09 K/uL Basophils # (Auto) 0.02 K/uL Assessment & Plan Patient on vancomycin and zosyn for possible sepsis/PNA Vancomycin: * Trough level came back at 9.6 mcg/ml (goal 15-20 mcg/ml for PNA); however drawn before steady state - feel that estimated trough at steady state is within therapeutic range * Therefore, will continue with current regimen of 750 mg iv q 24 hrs for now * Will collect a trough prior to the 1200 dose on 09/11 to ensure therapeutic * Scr remains stable, CrCl ~35 ml/min today Zosyn: * 3.375 gm iv q 8 hrs (appropriate for CrCl >20 ml/min) ; no change Pharmacy will continue to follow and will adjust dose/frequency as necessary. Thank you
[2016-09-09] MEDS ORDERED: TPN/PPN CONSULT PHARMACY PRN (16:00)
[2016-09-09] MEDS ORDERED: CUSTOM PERIPHERAL PN 1 BAG IV SCH (16:00)
[2016-09-09] MEDS ORDERED: LEVALBUTEROL 1.25MG/0.5ML NEB INH PRN (17:15)
[2016-09-09] MEDS ORDERED: IPRATROPIUM BROMIDE NEB SOLN 0.02% 2.5 ML VIAL INH PRN (17:15)
[2016-09-09] MEDS ORDERED: LEVALBUTEROL/IPRATROPIUM NEB INH PRN (17:15)
[2016-09-09] MEDS: IPRATROPIUM BROMIDE NEB SOLN 0.02% 2.5 ML VIAL INH SCH (19:03)
[2016-09-09] MEDS: LEVALBUTEROL 1.25MG/0.5ML NEB INH SCH (19:04)
[2016-09-09] MEDS: MoRPHine SULFATE 2 MG/ML CARP IV PRN ×2 (20:25→21:19)
[2016-09-09] MEDS ORDERED: LEVALBUTEROL/IPRATROPIUM NEB INH SCH (21:00)
--- NOTE | 2016-09-09 21:35 | DIAGNOSTIC IMAGING REPORT ---
CHEST ONE VIEW PORTABLE CLINICAL HISTORY: Respiratory distress. COMPARISON STUDY: Chest radiograph September 07, 2016. FINDINGS: The known right lower lobe mass is obscured on this exam. Right hilar fullness is again noted. There is no pneumothorax. Small to moderate bilateral pleural effusions have increased since prior exam. Diffuse interstitial thickening is increased. Cardiomegaly is again noted. IMPRESSION: 1. Progression of interstitial thickening which favors pulmonary edema. 2. Increase in small to moderate bilateral pleural effusions with associated bibasilar opacities which could reflect atelectasis or consolidation. 3. Obscuration of the known right lower lobe mass. Electronically signed by: Jose Chaudhry M.D. 09/09/2016 9:33 PM Dictated Date/Time: 09/09/2016 9:32 PM
[2016-09-10] MEDS: MoRPHine SULFATE 2 MG/ML CARP IV PRN ×2 (01:57→04:12)
[2016-09-10] MEDS: LEVALBUTEROL 1.25MG/0.5ML NEB INH SCH ×2 (01:59→07:59)
[2016-09-10] MEDS: IPRATROPIUM BROMIDE NEB SOLN 0.02% 2.5 ML VIAL INH SCH ×2 (01:59→07:20)
--- NOTE | 2016-09-10 05:52 | Progress Note ---
Progress Note Date of Service September 10, 2016. Progress Note Per nursing pt had an episode of vomiting of fecal-like matter She is scheduled for possible transfer to [facility] for [facility] treatment eval We will now have to treat a new acute condition if she has an obstruction and hold her transfer I have placed the pt on scheduled Zofran. She is being treated with Zosyn and Flagyl added. CT abdomen to confirm obstruction pending. We will need to discuss treatment option with family and surgery if requested if an obstruction is confirmed. We will need to consult GI to insert an NG tube as apparently this failed previously.
[2016-09-10] MEDS ORDERED: ONDANSETRON INJ 2 MG/ML 2 ML VIAL IV SCH (06:00)
[2016-09-10] MEDS ORDERED: METRONIDAZOLE / NSS 500 MG in PREMIXED NSS 100 ML IV SCH (06:00)
[2016-09-10 07:20] VITALS: PULSE 114; O2SAT 76
[2016-09-10 07:20] LABS: BUN/CREATININE RATIO 26.2 (10-20); CREATININE 0.81 mg/dl (0.60-1.20); MAGNESIUM 2.3 mg/dl (1.8-2.4); PHOSPHORUS 3.7 mg/dl (2.5-4.9); POTASSIUM 3.4 mmol/L (3.5-5.1)
[2016-09-10 07:36] VITALS: BP 123/71; PULSE 124
[2016-09-10 09:47] LABS: CALCIUM 8.3 mg/dl (8.5-10.1)
[2016-09-10] MEDS ORDERED: DEXTROSE 10% 1,000 ML IV PRN (10:12)
--- NOTE | 2016-09-10 10:23 | Death Summary ---
Summary of Admission Date Sep 03, 2016 at 13:00 Date & Time of September 10, 2016. 0740 Cause of Adenocarcinoma of lung Hospital Course 86-year-old female with admitted with worsening weakness, fatigue and loss of appetite.New found bronchogenic mass, which was confirmed by pathology is adenocarcinoma, stage IV lung cancer, condition continue declining family had hoped for a second opinion at [facility], but pt abruptly declined overnight and succumbed to illness at 0740 hours. Previously in her hospital stay - CT of the chest w/ RLL perihilar mass suspicious for bronchogenic carcinoma - measures 7 x 3.9 x 3.2 cm, there is also skeletal, hepatic, pulmonary and nodular masses present. -Pathological fracture involving T5 and T7. - Consulted heme/onc - pt is a poor candidate for chemotherapy and radiation - Video swallow was completed and failed, '' Son and Sons friend at bedside, I phoned Bright other son shortly after pronouncing patient time to visit patient speak to family and complete chart >30 minutes
== END 2016-09-10 07:40 | disposition expired | DRG 166 ==
LOC: ENRESERVDT → ENRESERVTM → C.EDB 08:58 → C.4E 13:00 → C.2T 09-07 10:22 → C.MS4W 09-07 19:01
PROVIDERS: ADMIT Internal Medicine; ATTEND Hospitalist
PROC: 0B9F8ZX Drainage of Right Lower Lung Lobe, Via Natural or Artificial Opening Endoscopic, Diagnostic (ICD-10-PCS; principal; 2016-09-03)
DX: C34.91 Malignant neoplasm of unspecified part of right bronchus or lung (principal); E43 Unspecified severe protein-calorie malnutrition; C78.7 Secondary malignant neoplasm of liver and intrahepatic bile duct; M84.58XA Pathological fracture in neoplastic disease, other specified site, initial encounter for fracture; C79.51 Secondary malignant neoplasm of bone; E87.0 Hyperosmolality and hypernatremia; E86.0 Dehydration; Z87.891 Personal history of nicotine dependence; I10 Essential (primary) hypertension; R13.10 Dysphagia, unspecified; Z96.5 Presence of tooth-root and mandibular implants; Z51.5 Encounter for palliative care; R63.4 Abnormal weight loss; J90 Pleural effusion, not elsewhere classified; R53.1 Weakness